=== PATIENT | female | born 1930 | race Caucasian/White ===

== ENCOUNTER 2016-12-17 03:40 | Emergency (ER) | payer MEDICARE, BC ==
[2016-12-17 04:27] VITALS: BP 210/103
--- NOTE | 2016-12-17 04:32 | EDM.PDOC ---
ED HPI GENERAL MEDICAL PROBLEM - General Chief Complaint: Chest Pain Stated Complaint: CHEST PAIN Time Seen by Provider: 12/17/16 04:05 Source of Information: Reports: Patient History Limitations: Reports: No Limitations - History of Present Illness INITIAL COMMENTS - FREE TEXT/NARRATIVE: History of present illness: [A 6-year-old female presenting by ambulance. She apparently woke up and noticed that her light on her stand that has to do with her pacemaker was on it alarmed her. She got up to go to the bathroom and she admits to being somewhat excitable but ended up pushing her life alert alarm in came in by ambulance her son is here with her. She did have some chest pain that has resolved by the time she arrived here and she is complaining of some numbness of the left side of her face but I'm not sure if this is acute or chronic for her. She has no headaches or visual disturbances no complaints of weakness she lives at [facility] in [place] been getting along well there with a walker and still cooking and cleaning and caring for her daily needs.] Review of systems: As per history of present illness and below otherwise all systems reviewed and negative. Past medical history: As per history of present illness and as reviewed below otherwise noncontributory. Surgical history: As per history of present illness and as reviewed below otherwise noncontributory. Social history: No reported history of drug or alcohol abuse. Family history: As per history of present illness and as reviewed below otherwise noncontributory. Physical exam: Gen.: Very pleasant talkative friendly woman who appears to be in excellent health for her age. HEENT: Atraumatic, normocephalic, pupils reactive, negative for conjunctival pallor or scleral icterus, mucous membranes somewhat dry, throat clear, neck supple, nontender, trachea midline. Lungs: Clear to auscultation, breath sounds equal bilaterally, chest nontender. Heart: S1S2, regular, negative for clicks, rubs, or JVD. Abdomen: Soft, nondistended, nontender. Negative for masses or hepatosplenomegaly. Negative for costovertebral tenderness. Pelvis: Stable nontender. Genitourinary: Deferred. Rectal: Deferred. Extremities: Atraumatic, negative for cords or calf pain. Neurovascular unremarkable. Neuro: Awake, alert, oriented. Cranial nerves II through XII unremarkable. Cerebellum unremarkable. Motor and sensory unremarkable throughout. Exam nonfocal. She does have a little bit of a droop to the left corner of her mouth but she states that's been there since she went to the dentist to have some dental work done. So that's not new. Diagnostics: [EKG shows that she has a paced rhythm with no current ischemia or injury] Therapeutics: [] Impression: [Hypertension Anxiety state] Plan: [After just visiting with her I think that we determined that she just had another episode of excitement when she saw the red light by her bedside and it just precipitated of turn of events that she ended appear in the ER but she really is doing fine and feeling better and wouldn't let her return to her home. Her son will have some recheck on her later. Her blood pressure was up but she is due for her morning blood pressure meds in a couple of hours.] Definitive disposition and diagnosis as appropriate pending reevaluation and review of above. Left Middle Chest Pain Score (Numeric/FACES): 2 - Related Data Allergies Allergy/AdvReac Type Severity Reaction Status Date / Time allopurinol Allergy Cannot Verified 03/25/16 07:44 Remember amlodipine besylate Allergy Swelling Verified 03/25/16 07:44 [From Norvasc] cilostazol [From Pletal] Allergy Headache Verified 03/25/16 07:44 iodine Allergy Hives Verified 03/25/16 07:44 niacin Allergy Hives Verified 03/25/16 07:44 paroxetine HCl [From Paxil] Allergy Cannot Verified 03/25/16 07:44 Remember acetaminophen AdvReac Hallucinati Verified 03/25/16 07:44 [From Darvocet-N] ons alendronate sodium AdvReac Stomach Verified 03/25/16 07:44 [From Fosamax] Upset aspirin AdvReac Stomach Verified 03/25/16 07:44 Ache codeine AdvReac Stomach Verified 03/25/16 07:44 Upset cyclobenzaprine HCl AdvReac Syncope Verified 03/25/16 07:44 [From Flexeril] lorazepam [From Ativan] AdvReac Tremors Verified 03/25/16 07:44 propoxyphene napsylate AdvReac Hallucinati Verified 03/25/16 07:44 [From Darvocet-N] ons raloxifene HCl [From Evista] AdvReac Hallucinati Verified 03/25/16 07:44 ons Home Meds: Home Meds Cetirizine HCl [Zyrtec] 10 mg PO DAILY 12/19/13 [History] Furosemide [Lasix] 20 mg PO DAILY 12/19/13 [History] Levothyroxine [Synthroid] 50 mcg PO DAILY 12/19/13 [History] Losartan [Cozaar] 50 mg PO DAILY 12/19/13 [History] Lutein 10 mg PO DAILY 12/19/13 [History] Sotalol [Betapace, Sorine] 120 mg PO BID 12/19/13 [History] Warfarin [Coumadin] 7.5 mg PO MOFR 12/19/13 [History] Ca Carbonate/Vitamin D3/Vit K [Calcium + D Soft Chewable Tab] 1 tab PO TID 08/19 [History] cycloSPORINE [Restasis] 1 drop EYEBOTH BID 08/19/14 [History] Gluc HCl/Csa/Claire Hy/Hyalur Ac [Glucosamine Chondroitin] 1 tab PO BID 02/11/15 [ History] Hydrocortisone [Hydrocortisone 1% Crm] 1 applic TOP DAILY PRN 02/11/15 [History] Ipratropium [Atrovent 0.06% Nasal [place]] 2 sprays QUE TID PRN 02/11/15 [History] Multivitamin with Minerals [Multiple Vitamin] 1 tab PO DAILY 02/11/15 [History] Cholestyramine/Aspartame [Questran Light Powder] 4 gm PO DAILY PRN 02/13/16 [ History] Garlic 1 each PO DAILY 02/13/16 [History] Warfarin [Coumadin] 5 mg PO SUTUWETHSA 02/13/16 [History] Digoxin [Lanoxin] 125 mcg PO DAILY 12/17/16 [History] Diltiazem [Cardizem] 30 mg PO ASDIRECTED PRN 12/17/16 [History] Prednisone [IJD: Prednisone] 2 mg PO DAILY 12/17/16 [History] Past Medical History HEENT History: Reports: Allergic Rhinitis, Cataract, Hard of Hearing, Impaired Vision, Sinusitis Cardiovascular History: Reports: Afib, Arrhythmia, Blood Clots/VTE/DVT, High Cholesterol, Hypertension, Pacemaker Gastrointestinal History: Reports: Gastritis, GERD, Helicobacter Pylori 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: , 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 Musculoskeletal History: Reports: Arthritis, Back Pain, Chronic, Fracture, Osteoporosis Neurological History: Reports: Headaches, Chronic, Other (See Below) Other Neuro History: acoustic neuroma-brain, benign Psychiatric History: Reports: Anxiety, Mood Swings Endocrine/Metabolic History: Reports: Hypothyroidism, Osteoporosis Hematologic History: Reports: Anticoagulation Therapy Oncologic (Cancer) History: Reports: Other (See Below) Other Oncologic History: skin CA Dermatologic History: Reports: Eczema - Infectious Disease History Infectious Disease History: Reports: Chicken Pox, Measles, Mumps - Past Surgical History HEENT Surgical History: Reports: Adenoidectomy, Cataract Surgery, Tonsillectomy Endocrine Surgical History: Reports: None Neurological Surgical History: Reports: Thoracic Spine, Other (See Below) Musculoskeletal Surgical History: Reports: Other (See Below) Social & Family History - Family History Family Medical History: Noncontributory Cardiac: Reports: Hypertension Other Cardiac Family History: Sister had stroke. Musculoskeletal: Reports: Arthritis, Osteoporosis Neurological: Reports: CVA Psychiatric: Reports: Anxiety Oncologic: Reports: Leukemia - Tobacco Use Smoking Status *Q: Never Smoker Second Hand Smoke Exposure: No - Caffeine Use Caffeine Use: Reports: Coffee - Alcohol Use Days Per Week of Alcohol Use: 0 - Recreational Drug Use Recreational Drug Use: No ED ROS GENERAL - Review of Systems Review Of Systems: ROS reveals no pertinent complaints other than HPI. ED EXAM, GENERAL - Physical Exam Exam: See Below Course - Vital Signs Last Recorded V/S: Last Vital Signs Temp 36.7 C 12/17/16 03:55 Pulse 62 12/17/16 03:55 Resp 12 12/17/16 03:55 BP 218/113 H 12/17/16 03:55 Pulse Ox 97 12/17/16 03:55 Departure - Departure Time of Disposition: 04:31 Disposition: Home, Self-Care 01 Condition: Good Clinical Impression: Anxiety state Hypertension Qualifiers: Hypertension type: essential hypertension Qualified Code(s): I10 - Essential ( primary) hypertension Forms: ED Department Discharge Additional Instructions: It was a pleasure to meet you and I wish you well and now the rest your summer goes well. No forget to take her blood pressure medications and follow up with your doctor as per his recommendations and have your son check out the machine that monitors your pacemaker to make sure that it's working properly and charging.
== END 2016-12-17 04:51 | disposition home or self-care (01) ==
LOC: JP.ED 03:40
DX: I10 Essential (primary) hypertension (principal); F41.9 Anxiety disorder, unspecified; I48.91 Unspecified atrial fibrillation; K21.9 Gastro-esophageal reflux disease without esophagitis; M81.0 Age-related osteoporosis without current pathological fracture; E03.9 Hypothyroidism, unspecified; Z98.890 Other specified postprocedural states; Z90.49 Acquired absence of other specified parts of digestive tract; Z86.718 Personal history of other venous thrombosis and embolism; Z79.01 Long term (current) use of anticoagulants; Z79.899 Other long term (current) drug therapy; Z85.828 Personal history of other malignant neoplasm of skin; Z88.5 Allergy status to narcotic agent; Z88.6 Allergy status to analgesic agent; Z88.8 Allergy status to other drugs, medicaments and biological substances
CPT/HCPCS: 93005; 93010; 99284; 99285

== ENCOUNTER 2016-12-20 14:02 | Emergency (ER) | payer MEDICARE, BC ==
[2016-12-20] MEDS ORDERED: Aspirin 81 MG Tab.Chew PO ONE (14:39)
--- NOTE | 2016-12-20 14:43 | EDM.PDOC ---
ED HPI GENERAL MEDICAL PROBLEM - General Chief Complaint: Chest Pain Stated Complaint: CHEST, ARM, JAW PAIN,SOB Time Seen by Provider: 12/20/16 14:13 Source of Information: Reports: Patient, Family, Old Records, RN Notes Reviewed History Limitations: Reports: No Limitations - History of Present Illness INITIAL COMMENTS - FREE TEXT/NARRATIVE: 86-year-old female presents emergency department day complaint of chest discomfort with left arm radiation as well as radiation into the jaw also shortness of breath no nausea or diaphoresis, she has no history of coronary artery disease does have a history of a pacemaker and anxiety Chest Pain Score (Numeric/FACES): 2 - Related Data Allergies Allergy/AdvReac Type Severity Reaction Status Date / Time allopurinol Allergy Cannot Verified 03/25/16 07:44 Remember amlodipine besylate Allergy Swelling Verified 03/25/16 07:44 [From Norvasc] cilostazol [From Pletal] Allergy Headache Verified 03/25/16 07:44 iodine Allergy Hives Verified 12/20/16 14:17 niacin Allergy Hives Verified 12/20/16 14:17 paroxetine HCl [From Paxil] Allergy Cannot Verified 12/20/16 14:17 Remember acetaminophen AdvReac Hallucinati Verified 12/20/16 14:17 [From Darvocet-N] ons alendronate sodium AdvReac Stomach Verified 12/20/16 14:17 [From Fosamax] Upset aspirin AdvReac Stomach Verified 12/20/16 14:17 Ache codeine AdvReac Stomach Verified 12/20/16 14:17 Upset cyclobenzaprine HCl AdvReac Syncope Verified 12/20/16 14:17 [From Flexeril] lorazepam [From Ativan] AdvReac Tremors Verified 12/20/16 14:17 propoxyphene napsylate AdvReac Hallucinati Verified 12/20/16 14:17 [From Darvocet-N] ons raloxifene HCl [From Evista] AdvReac Hallucinati Verified 03/25/16 07:44 ons Home Meds: Home Meds Cetirizine HCl [Zyrtec] 10 mg PO DAILY 12/19/13 [History] Furosemide [Lasix] 20 mg PO DAILY 12/19/13 [History] Levothyroxine [Synthroid] 50 mcg PO DAILY 12/19/13 [History] Losartan [Cozaar] 50 mg PO DAILY 12/19/13 [History] Lutein 10 mg PO DAILY 12/19/13 [History] Sotalol [Betapace, Sorine] 120 mg PO BID 12/19/13 [History] Warfarin [Coumadin] 7.5 mg PO MOFR 12/19/13 [History] Ca Carbonate/Vitamin D3/Vit K [Calcium + D Soft Chewable Tab] 1 tab PO TID 08/19 [History] cycloSPORINE [Restasis] 1 drop EYEBOTH BID 08/19/14 [History] Gluc HCl/Csa/Claire Hy/Hyalur Ac [Glucosamine Chondroitin] 1 tab PO BID 02/11/15 [ History] Ipratropium [Atrovent 0.06% Nasal [place]] 2 sprays QUE TID PRN 02/11/15 [History] Multivitamin with Minerals [Multiple Vitamin] 1 tab PO DAILY 02/11/15 [History] Warfarin [Coumadin] 5 mg PO SUTUWETHSA 02/13/16 [History] Digoxin [Lanoxin] 125 mcg PO DAILY 12/17/16 [History] Diltiazem [Cardizem] 30 mg PO ASDIRECTED PRN 12/17/16 [History] Prednisone [IJD: Prednisone] 2 mg PO DAILY 12/17/16 [History] Past Medical History HEENT History: Reports: Allergic Rhinitis, Cataract, Hard of Hearing, Impaired Vision, Sinusitis Cardiovascular History: Reports: Afib, Arrhythmia, Blood Clots/VTE/DVT, High Cholesterol, Hypertension, Pacemaker Gastrointestinal History: Reports: Gastritis, GERD, Helicobacter Pylori 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: , 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 Musculoskeletal History: Reports: Arthritis, Back Pain, Chronic, Fracture, Osteoporosis Neurological History: Reports: Headaches, Chronic, Other (See Below) Other Neuro History: acoustic neuroma-brain, benign Psychiatric History: Reports: Anxiety, Mood Swings Endocrine/Metabolic History: Reports: Hypothyroidism, Osteoporosis Hematologic History: Reports: Anticoagulation Therapy Oncologic (Cancer) History: Reports: Other (See Below) Other Oncologic History: skin CA Dermatologic History: Reports: Eczema - Infectious Disease History Infectious Disease History: Reports: Chicken Pox, Measles, Mumps - Past Surgical History HEENT Surgical History: Reports: Adenoidectomy, Cataract Surgery, Tonsillectomy Cardiovascular Surgical History: Reports: Pacer Endocrine Surgical History: Reports: None Neurological Surgical History: Reports: Thoracic Spine, Other (See Below) Other Neurological Surgeries/Procedures: brain surgery for acoustic neuroma- brain Musculoskeletal Surgical History: Reports: Other (See Below) Other Musculoskeletal Surgeries/Procedures:: femur repair Social & Family History - Family History Family Medical History: Noncontributory Cardiac: Reports: Hypertension Other Cardiac Family History: Sister had stroke. Musculoskeletal: Reports: Arthritis, Osteoporosis Neurological: Reports: CVA Psychiatric: Reports: Anxiety Oncologic: Reports: Leukemia - Tobacco Use Smoking Status *Q: Never Smoker Second Hand Smoke Exposure: No - Caffeine Use Caffeine Use: Reports: Coffee - Alcohol Use Days Per Week of Alcohol Use: 0 - Recreational Drug Use Recreational Drug Use: No ED ROS GENERAL - Review of Systems Review Of Systems: See Below Constitutional: Denies: Diaphoresis HEENT: Reports: No Symptoms Respiratory: Reports: Shortness of Breath Cardiovascular: Reports: Chest Pain. Denies: Palpitations GI/Abdominal: Denies: Nausea, Vomiting : Reports: No Symptoms Musculoskeletal: Reports: No Symptoms Skin: Reports: No Symptoms ED EXAM, GENERAL - Physical Exam Exam: See Below Free Text/Narrative:: General: Elderly female, not in any distress, alert and oriented x3 HEENT: head is atraumatic normocephalic, eyes pupils equal round reactive to light, sclera clear no conjunctivitis appreciated. Ears hearing aids in place bilaterally. Nose no septal deviation, nares are clear, no blood present. Mouth mucosa is moist and pink no erythema or exudate noted in soft palate, tongue is midline uvula is midline, dentition is intact. Neck: Supple no thyromegaly no tracheal deviation. Nodes: Cervical nodes subclavicular nodes nontender no palpable lymphadenopathy noted. Lungs: clear to auscultation bilaterally with symmetrical respirations, no adventitious noise appreciated. CV: Regular rate and rhythm S1 and S2 appreciated no murmurs rubs or gallops noted. Abdomen: Soft, nontender, no palpable masses or organomegaly appreciated, no distention no guarding bowel sounds are present,. Neuro: Cranial nerves II through XII grossly intact Skin: Warm and dry, intact Extremities: No lower extremity edema appreciated, Course - Vital Signs Last Recorded V/S: Last Vital Signs Temp 97.8 F 12/20/16 14:12 Pulse 65 12/20/16 18:49 Resp 16 12/20/16 17:48 BP 153/74 H 12/20/16 18:49 Pulse Ox 95 12/20/16 18:49 - Orders/Labs/Meds Orders: Active Orders 24 hr Category Date Time Status Cardiac Monitoring [RC] .As Directed Care 12/20/16 14:39 Active EKG Documentation Completion [RC] ASDIRECTED Care 12/20/16 14:39 Active Chest 2V [CR] Stat Exams 12/20/16 14:39 Taken EKG 12 Lead [EK] Stat Ther 12/20/16 14:39 Ordered Labs: Laboratory Tests 12/20/16 12/20/16 12/20/16 Range/Units 14:39 14:39 14:39 WBC 6.4 (4.5-11.0) K/uL RBC 4.84 (3.30-5.50) M/uL Hgb 14.5 (12.0-15.0) g/dL Hct 41.0 (36.0-48.0) % MCV 85 (80-98) fL MCH 30 (27-31) pg MCHC 35 (32-36) % Plt Count 183 (150-400) K/uL Neut % (Auto) 59 (36-66) % Lymph % (Auto) 28 (24-44) % [place] % (Auto) 11 H (2-6) % Eos % (Auto) 2 (2-4) % Baso % (Auto) 1 (0-1) % PT 20.5 H (9.5-12.0) sec INR 1.87 H (0.80-1.20) D-Dimer, Quantitative (0.0-400.0) ng/mL Sodium 131 L (140-148) mmol/L Potassium 4.0 (3.6-5.2) mmol/L Chloride 95 L (100-108) mmol/L Carbon Dioxide 28 (21-32) mmol/L Anion Gap 12.0 (5.0-14.0) mmol/L BUN 20 H (7-18) mg/dL Creatinine 0.9 (0.6-1.0) mg/dL Est Cr Clr Drug Dosing 31.63 mL/min Estimated GFR (MDRD) 59 L (>60) Glucose 95 (74-106) mg/dL Calcium 8.7 (8.5-10.1) mg/dL Total Bilirubin 0.8 (0.2-1.0) mg/dL AST 28 (15-37) U/L ALT 24 (12-78) U/L Alkaline Phosphatase 43 L (46-116) U/L CK-MB (CK-2) 3.3 (0-3.6) mg/mL Troponin I < 0.017 (0.000-0.056) ng/mL Total Protein 7.4 (6.4-8.2) g/dL Albumin 3.5 (3.4-5.0) g/dL Globulin 3.9 H (2.3-3.5) g/dL Albumin/Globulin Ratio 0.9 L (1.2-2.2) 12/20/16 12/20/16 Range/Units 16:09 17:30 WBC (4.5-11.0) K/uL RBC (3.30-5.50) M/uL Hgb (12.0-15.0) g/dL Hct (36.0-48.0) % MCV (80-98) fL MCH (27-31) pg MCHC (32-36) % Plt Count (150-400) K/uL Neut % (Auto) (36-66) % Lymph % (Auto) (24-44) % [place] % (Auto) (2-6) % Eos % (Auto) (2-4) % Baso % (Auto) (0-1) % PT (9.5-12.0) sec INR (0.80-1.20) D-Dimer, Quantitative 358 (0.0-400.0) ng/mL Sodium (140-148) mmol/L Potassium (3.6-5.2) mmol/L Chloride (100-108) mmol/L Carbon Dioxide (21-32) mmol/L Anion Gap (5.0-14.0) mmol/L BUN (7-18) mg/dL Creatinine (0.6-1.0) mg/dL Est Cr Clr Drug Dosing mL/min Estimated GFR (MDRD) (>60) Glucose (74-106) mg/dL Calcium (8.5-10.1) mg/dL Total Bilirubin (0.2-1.0) mg/dL AST (15-37) U/L ALT (12-78) U/L Alkaline Phosphatase (46-116) U/L CK-MB (CK-2) 3.0 (0-3.6) mg/mL Troponin I < 0.017 (0.000-0.056) ng/mL Total Protein (6.4-8.2) g/dL Albumin (3.4-5.0) g/dL Globulin (2.3-3.5) g/dL Albumin/Globulin Ratio (1.2-2.2) Meds: Medications Discontinued Medications Generic Name Dose Route Start Last Admin Trade Name Cortes PRN Reason Stop Dose Admin Aspirin 324 mg 12/20/16 14:39 12/20/16 14:52 Aspirin PO 12/20/16 14:40 324 mg ONETIME ONE Administration Departure - Departure Time of Disposition: 19:10 Disposition: Home, Self-Care 01 Condition: Good Clinical Impression: Atypical chest pain Forms: ED Department Discharge Additional Instructions: Continue with your regular medications Please followup with your primary care provider in 3-5 days if not better, please call return to the emergency department with worsening of symptoms. - My Orders Last 24 Hours: My Active Orders 12/20/16 14:39 Cardiac Monitoring [RC] .As Directed EKG Documentation Completion [RC] ASDIRECTED Chest 2V [CR] Stat EKG 12 Lead [EK] Stat - Assessment/Plan Last 24 Hours: My Active Orders 12/20/16 14:39 Cardiac Monitoring [RC] .As Directed EKG Documentation Completion [RC] ASDIRECTED Chest 2V [CR] Stat EKG 12 Lead [EK] Stat Plan: Assessment Acuity = acute Site and laterality = atypical chest pain Etiology = unclear etiology Manifestations = none Location of injury = Home Lab values = CBC within normal limits, INR low at 1.87 subtherapeutic d-dimer - 358 sodium low at 131 consistent hyponatremia and the remainder CMP was unremarkable troponin negative 2 3 hours apart, heart score was 4, chest x-ray shows I did review films myself I cannot appreciate any acute process, the official read from radiology is pending, EKG demonstrates sinus rhythm no ST changes or elevations Plan I did review lab work EKG results with her she had no cardiac events for arrhythmias chest pain spontaneously resolved plan is to discharge home follow- up primary care 3-5 days for reevaluation Patient was in agreement with the plan all questions were answered, they were instructed to return to the emergency department or call for worsening symptoms. This note was dictated using [employer] voice recognition software please call with any questions.
[2016-12-20 18:50] VITALS: BP 153/74
--- NOTE | 2016-12-21 09:51 | CR ---
Two-view chest Comparison: 13 February 2016. Findings: There is hyperinflation consistent with COPD. There is a stable cardiac pacemaker with 2 i ntact leads. There are no infiltrates or effusions. The heart and vascular structures are stable. St able compression deformities of the thoracic spine with vertebral plasty changes at 2 levels. Impression: 1. COPD. 2. No acute findings.
== END 2016-12-20 19:21 | disposition home or self-care (01) ==
LOC: JP.ED 14:02
DX: R07.89 Other chest pain (principal); I10 Essential (primary) hypertension; M81.0 Age-related osteoporosis without current pathological fracture; Z95.0 Presence of cardiac pacemaker; I48.91 Unspecified atrial fibrillation; E78.00 Pure hypercholesterolemia, unspecified; K21.9 Gastro-esophageal reflux disease without esophagitis; E03.9 Hypothyroidism, unspecified; Z98.890 Other specified postprocedural states; Z98.49 Cataract extraction status, unspecified eye; Z88.1 Allergy status to other antibiotic agents; Z88.8 Allergy status to other drugs, medicaments and biological substances; Z88.5 Allergy status to narcotic agent; Z79.899 Other long term (current) drug therapy; Z79.01 Long term (current) use of anticoagulants
CPT/HCPCS: 36415; 71020; 80053; 82553; 84484; 85025; 85379; 85610; 93005; 99285; A9270; 93010; 99284

== ENCOUNTER 2017-01-02 01:29 | Inpatient (IN) | payer MEDICARE, BC ==
[2017-01-02] MEDS ORDERED: Lisinopril 10 MG Tab PO ONE (02:08)
[2017-01-02] MEDS ORDERED: Sodium Chloride 0.9% 10 ML Syringe FLUSH PRN (02:08)
[2017-01-02] MEDS ORDERED: Lactated Ringers 1,000 ML IV SCH (02:15)
--- NOTE | 2017-01-02 02:16 | EDM.PDOC ---
ED HPI GENERAL MEDICAL PROBLEM - General Chief Complaint: General Stated Complaint: MED[facility] Time Seen by Provider: 01/02/17 02:00 Source of Information: Reports: Patient, Family, RN Notes Reviewed History Limitations: Reports: Altered Mental Status - History of Present Illness INITIAL COMMENTS - FREE TEXT/NARRATIVE: 86-year-old female presents emergency department today via EMS services for increased confusion, family states she has progressively gotten worse over the last 10 days having difficulty with memory urinary frequency inappropriate behavior she has become more confused. Difficult to obtain review of systems. 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 - Related Data Allergies Allergy/AdvReac Type Severity Reaction Status Date / Time allopurinol Allergy Cannot Verified 01/02/17 01:51 Remember amlodipine besylate Allergy Swelling Verified 01/02/17 01:51 [From Norvasc] cilostazol [From Pletal] Allergy Headache Verified 01/02/17 01:51 iodine Allergy Hives Verified 01/02/17 01:51 niacin Allergy Hives Verified 01/02/17 01:51 paroxetine HCl [From Paxil] Allergy Other Verified 01/02/17 04:00 acetaminophen AdvReac Hallucinati Verified 01/02/17 01:51 [From Darvocet-N] ons alendronate sodium AdvReac Stomach Verified 01/02/17 01:51 [From Fosamax] Upset aspirin AdvReac Stomach Verified 01/02/17 01:51 Ache codeine AdvReac Stomach Verified 01/02/17 01:51 Upset cyclobenzaprine HCl AdvReac Syncope Verified 01/02/17 01:51 [From Flexeril] lorazepam [From Ativan] AdvReac Tremors Verified 01/02/17 01:51 propoxyphene napsylate AdvReac Hallucinati Verified 01/02/17 01:51 [From Darvocet-N] ons raloxifene HCl [From Evista] AdvReac Hallucinati Verified 01/02/17 01:51 ons Home Meds: Home Meds Furosemide [Lasix] 20 mg PO DAILY 12/19/13 [History] Levothyroxine [Synthroid] 50 mcg PO DAILY 12/19/13 [History] Losartan [Cozaar] 50 mg PO DAILY 12/19/13 [History] Lutein 10 mg PO DAILY 12/19/13 [History] Sotalol [Betapace, Sorine] 120 mg PO BID 12/19/13 [History] cycloSPORINE [Restasis] 1 drop EYEBOTH BID 08/19/14 [History] Gluc HCl/Csa/Claire Hy/Hyalur Ac [Glucosamine Chondroitin] 1 tab PO BID 02/11/15 [ History] Ipratropium [Atrovent 0.06% Nasal [place]] 2 sprays QUE TID PRN 02/11/15 [History] Multivitamin with Minerals [Multiple Vitamin] 1 tab PO DAILY 02/11/15 [History] Warfarin [Coumadin] 5 mg PO DAILY 02/13/16 [History] Digoxin [Lanoxin] 125 mcg PO DAILY 12/17/16 [History] Diltiazem [Cardizem] 30 mg PO ASDIRECTED PRN 12/17/16 [History] Prednisone [IJD: Prednisone] 2 mg PO DAILY 12/17/16 [History] Calcium Carbonate 1 tab PO DAILY 01/02/17 [History] Levocetirizine Dihydrochloride [Xyzal] 5 mg PO BEDTIME 01/02/17 [History] Past Medical History HEENT History: Reports: Allergic Rhinitis, Cataract, Hard of Hearing, Impaired Vision, Sinusitis Cardiovascular History: Reports: Afib, Arrhythmia, Blood Clots/VTE/DVT, High Cholesterol, Hypertension, Pacemaker Gastrointestinal History: Reports: Gastritis, GERD, Helicobacter Pylori 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: , Spontaneous Musculoskeletal History: Reports: Arthritis, Back Pain, Chronic, Fracture, Osteoporosis Neurological History: Reports: Headaches, Chronic, Other (See Below) Other Neuro History: acoustic neuroma-brain, benign Psychiatric History: Reports: Anxiety, Mood Swings Endocrine/Metabolic History: Reports: Hypothyroidism, Osteoporosis Hematologic History: Reports: Anticoagulation Therapy Oncologic (Cancer) History: Reports: Other (See Below) Other Oncologic History: skin CA Dermatologic History: Reports: Eczema - Infectious Disease History Infectious Disease History: Reports: Chicken Pox, Measles, Mumps - Past Surgical History HEENT Surgical History: Reports: Adenoidectomy, Cataract Surgery, Tonsillectomy Cardiovascular Surgical History: Reports: Pacer Endocrine Surgical History: Reports: None Neurological Surgical History: Reports: Thoracic Spine, Other (See Below) Other Neurological Surgeries/Procedures: brain surgery for acoustic neuroma- brain Musculoskeletal Surgical History: Reports: Other (See Below) Other Musculoskeletal Surgeries/Procedures:: femur repair Social & Family History - Family History Family Medical History: Noncontributory Cardiac: Reports: Hypertension Other Cardiac Family History: Sister had stroke. Musculoskeletal: Reports: Arthritis, Osteoporosis Neurological: Reports: CVA Psychiatric: Reports: Anxiety Oncologic: Reports: Leukemia - Tobacco Use Smoking Status *Q: Never Smoker Second Hand Smoke Exposure: No - Caffeine Use Caffeine Use: Reports: Coffee - Alcohol Use Days Per Week of Alcohol Use: 0 - Recreational Drug Use Recreational Drug Use: No ED ROS GENERAL - Review of Systems Review Of Systems: Unable To Obtain ED EXAM, GENERAL - Physical Exam Exam: See Below Exam Limited By: Altered Mental Status General Appearance: Alert, No Apparent Distress Eye Exam: Bilateral Eye: Normal Inspection, PERRL Ears: Normal External Exam, Other (Hearing and in place bilaterally) Nose: Normal Inspection, Normal Mucosa, No Blood Throat/Mouth: Normal Inspection, No Airway Compromise, Other (Dry mouth dentures in place) Head: Atraumatic, Normocephalic Neck: Normal Inspection, Supple, Non-Tender, Full Range of Motion Respiratory/Chest: No Respiratory Distress, Lungs Clear, Normal Breath Sounds, No Accessory Muscle Use Cardiovascular: No Murmur, Irregularly Irregular GI/Abdominal: Soft, Non-Tender Extremities: Normal Inspection, Non-Tender, No Pedal Edema Neurological: Alert, Confused, Disoriented, Slow to Respond, Memory Loss Recent Events Skin Exam: Warm Course - Vital Signs Last Recorded V/S: Last Vital Signs Temp 97.9 F 01/02/17 01:44 Pulse 60 01/02/17 01:44 Resp 12 01/02/17 01:44 BP 195/95 H 01/02/17 02:56 Pulse Ox 97 01/02/17 01:44 - Orders/Labs/Meds Orders: Active Orders 24 hr Category Date Time Status Peripheral IV Care [RC] . DIRECTED Care 01/02/17 02:09 Active Head wo Cont [CT] Urgent Exams 01/02/17 02:08 Taken Lactated Ringers [Ringers, Lactated] 1,000 ml Med 01/02/17 02:15 Active IV ASDIRECTED Sodium Chloride 0.9% [Saline Flush] Med 01/02/17 02:08 Active 10 ml FLUSH ASDIRECTED PRN Peripheral IV Insertion Adult [OM.PC] Urgent Oth 01/02/17 02:08 Ordered Medication Orders Lactated Ringer's (Ringers, Lactated) 1,000 mls @ 500 mls/hr IV ASDIRECTED TED Last Admin: 01/02/17 02:47 Dose: 500 mls/hr Sodium Chloride (Saline Flush) 10 ml FLUSH ASDIRECTED PRN PRN Reason: Keep Vein Open Last Admin: 01/02/17 02:47 Dose: 10 ml Labs: Laboratory Tests 01/02/17 01/02/17 01/02/17 Range/Units 01:55 02:28 02:28 WBC 9.7 (4.5-11.0) K/uL RBC 5.16 (3.30-5.50) M/uL Hgb 15.9 H (12.0-15.0) g/dL Hct 42.5 (36.0-48.0) % MCV 82 (80-98) fL MCH 31 (27-31) pg MCHC 37 H (32-36) % Plt Count 230 (150-400) K/uL Neut % (Auto) 70 H (36-66) % Lymph % (Auto) 19 L (24-44) % [place] % (Auto) 9 H (2-6) % Eos % (Auto) 1 L (2-4) % Baso % (Auto) 1 (0-1) % PT (9.5-12.0) sec INR (0.80-1.20) APTT (27.0-36.0) sec Sodium (140-148) mmol/L Potassium (3.6-5.2) mmol/L Chloride (100-108) mmol/L Carbon Dioxide (21-32) mmol/L Anion Gap (5.0-14.0) mmol/L BUN (7-18) mg/dL Creatinine (0.6-1.0) mg/dL Est Cr Clr Drug Dosing mL/min Estimated GFR (MDRD) (>60) Glucose (74-106) mg/dL Lactic Acid (0.4-2.0) mmol/L Calcium (8.5-10.1) mg/dL Total Bilirubin (0.2-1.0) mg/dL AST (15-37) U/L ALT (12-78) U/L Alkaline Phosphatase (46-116) U/L Ammonia (11-32) mmol/L Troponin I (0.000-0.056) ng/mL Total Protein (6.4-8.2) g/dL Albumin (3.4-5.0) g/dL Globulin (2.3-3.5) g/dL Albumin/Globulin Ratio (1.2-2.2) TSH, Ultra Sensitive (0.358-3.740) uIU/mL Urine Color Yellow Urine Appearance Clear Urine pH 8.0 (4.5-8.0) Ur Specific [place] 1.010 (1.008-1.030) Urine Protein 500 H (NEGATIVE) mg/dL Urine Glucose (UA) Normal (NEGATIVE) mg/dL Urine Ketones Negative (NEGATIVE) mg/dL Urine Occult Blood Negative (NEGATIVE) Urine Nitrite Negative (NEGATIVE) Urine Bilirubin Negative (NEGATIVE) Urine Urobilinogen Normal (NORMAL) mg/dL Ur Leukocyte Esterase Negative (NEGATIVE) Urine RBC Not seen (0-5) Urine WBC 0-5 (0-5) Ur Epithelial Cells Not seen Amorphous Sediment Few Urine Bacteria Few Urine Mucus Not seen Digoxin 0.83 L (0.90-2.00) ng/mL Urine Opiates Screen (NEGATIVE) Ur Oxycodone Screen (NEGATIVE) Urine Methadone Screen (NEGATIVE) Ur Propoxyphene Screen (NEGATIVE) Ur Barbiturates Screen (NEGATIVE) Ur Tricyclics Screen (NEGATIVE) Ur Phencyclidine Scrn (NEGATIVE) Ur Amphetamine Screen (NEGATIVE) U Methamphetamines Scrn (NEGATIVE) Urine MDMA Screen (NEGATIVE) U Benzodiazepines Scrn (NEGATIVE) U Cocaine Metab Screen (NEGATIVE) U Marijuana (THC) Screen (NEGATIVE) 01/02/17 01/02/17 01/02/17 Range/Units 02:28 02:28 02:28 WBC (4.5-11.0) K/uL RBC (3.30-5.50) M/uL Hgb (12.0-15.0) g/dL Hct (36.0-48.0) % MCV (80-98) fL MCH (27-31) pg MCHC (32-36) % Plt Count (150-400) K/uL Neut % (Auto) (36-66) % Lymph % (Auto) (24-44) % [place] % (Auto) (2-6) % Eos % (Auto) (2-4) % Baso % (Auto) (0-1) % PT 16.9 H (9.5-12.0) sec INR 1.55 H (0.80-1.20) APTT 29.1 (27.0-36.0) sec Sodium 123 L (140-148) mmol/L Potassium 4.1 (3.6-5.2) mmol/L Chloride 87 L (100-108) mmol/L Carbon Dioxide 27 (21-32) mmol/L Anion Gap 13.1 (5.0-14.0) mmol/L BUN 11 (7-18) mg/dL Creatinine 0.9 (0.6-1.0) mg/dL Est Cr Clr Drug Dosing 31.63 mL/min Estimated GFR (MDRD) 59 L (>60) Glucose 135 H (74-106) mg/dL Lactic Acid (0.4-2.0) mmol/L Calcium 9.0 (8.5-10.1) mg/dL Total Bilirubin 0.5 (0.2-1.0) mg/dL AST 30 (15-37) U/L ALT 30 (12-78) U/L Alkaline Phosphatase 52 (46-116) U/L Ammonia 8 L (11-32) mmol/L Troponin I < 0.017 (0.000-0.056) ng/mL Total Protein 8.2 (6.4-8.2) g/dL Albumin 3.7 (3.4-5.0) g/dL Globulin 4.5 H (2.3-3.5) g/dL Albumin/Globulin Ratio 0.8 L (1.2-2.2) TSH, Ultra Sensitive (0.358-3.740) uIU/mL Urine Color Urine Appearance Urine pH (4.5-8.0) Ur Specific [place] (1.008-1.030) Urine Protein (NEGATIVE) mg/dL Urine Glucose (UA) (NEGATIVE) mg/dL Urine Ketones (NEGATIVE) mg/dL Urine Occult Blood (NEGATIVE) Urine Nitrite (NEGATIVE) Urine Bilirubin (NEGATIVE) Urine Urobilinogen (NORMAL) mg/dL Ur Leukocyte Esterase (NEGATIVE) Urine RBC (0-5) Urine WBC (0-5) Ur Epithelial Cells Amorphous Sediment Urine Bacteria Urine Mucus Digoxin (0.90-2.00) ng/mL Urine Opiates Screen (NEGATIVE) Ur Oxycodone Screen (NEGATIVE) Urine Methadone Screen (NEGATIVE) Ur Propoxyphene Screen (NEGATIVE) Ur Barbiturates Screen (NEGATIVE) Ur Tricyclics Screen (NEGATIVE) Ur Phencyclidine Scrn (NEGATIVE) Ur Amphetamine Screen (NEGATIVE) U Methamphetamines Scrn (NEGATIVE) Urine MDMA Screen (NEGATIVE) U Benzodiazepines Scrn (NEGATIVE) U Cocaine Metab Screen (NEGATIVE) U Marijuana (THC) Screen (NEGATIVE) 01/02/17 01/02/17 01/02/17 Range/Units 02:28 02:28 02:28 WBC (4.5-11.0) K/uL RBC (3.30-5.50) M/uL Hgb (12.0-15.0) g/dL Hct (36.0-48.0) % MCV (80-98) fL MCH (27-31) pg MCHC (32-36) % Plt Count (150-400) K/uL Neut % (Auto) (36-66) % Lymph % (Auto) (24-44) % [place] % (Auto) (2-6) % Eos % (Auto) (2-4) % Baso % (Auto) (0-1) % PT (9.5-12.0) sec INR (0.80-1.20) APTT (27.0-36.0) sec Sodium (140-148) mmol/L Potassium (3.6-5.2) mmol/L Chloride (100-108) mmol/L Carbon Dioxide (21-32) mmol/L Anion Gap (5.0-14.0) mmol/L BUN (7-18) mg/dL Creatinine (0.6-1.0) mg/dL Est Cr Clr Drug Dosing mL/min Estimated GFR (MDRD) (>60) Glucose (74-106) mg/dL Lactic Acid 3.9 H (0.4-2.0) mmol/L Calcium (8.5-10.1) mg/dL Total Bilirubin (0.2-1.0) mg/dL AST (15-37) U/L ALT (12-78) U/L Alkaline Phosphatase (46-116) U/L Ammonia (11-32) mmol/L Troponin I (0.000-0.056) ng/mL Total Protein (6.4-8.2) g/dL Albumin (3.4-5.0) g/dL Globulin (2.3-3.5) g/dL Albumin/Globulin Ratio (1.2-2.2) TSH, Ultra Sensitive 8.507 H (0.358-3.740) uIU/mL Urine Color Urine Appearance Urine pH (4.5-8.0) Ur Specific [place] (1.008-1.030) Urine Protein (NEGATIVE) mg/dL Urine Glucose (UA) (NEGATIVE) mg/dL Urine Ketones (NEGATIVE) mg/dL Urine Occult Blood (NEGATIVE) Urine Nitrite (NEGATIVE) Urine Bilirubin (NEGATIVE) Urine Urobilinogen (NORMAL) mg/dL Ur Leukocyte Esterase (NEGATIVE) Urine RBC (0-5) Urine WBC (0-5) Ur Epithelial Cells Amorphous Sediment Urine Bacteria Urine Mucus Digoxin (0.90-2.00) ng/mL Urine Opiates Screen Negative (NEGATIVE) Ur Oxycodone Screen Negative (NEGATIVE) Urine Methadone Screen Negative (NEGATIVE) Ur Propoxyphene Screen Negative (NEGATIVE) Ur Barbiturates Screen Negative (NEGATIVE) Ur Tricyclics Screen Negative (NEGATIVE) Ur Phencyclidine Scrn Negative (NEGATIVE) Ur Amphetamine Screen Negative (NEGATIVE) U Methamphetamines Scrn Negative (NEGATIVE) Urine MDMA Screen Negative (NEGATIVE) U Benzodiazepines Scrn Negative (NEGATIVE) U Cocaine Metab Screen Negative (NEGATIVE) U Marijuana (THC) Screen Negative (NEGATIVE) Meds: Medications Generic Name Dose Route Start Last Admin Trade Name Freq PRN Reason Stop Dose Admin Lactated Ringer's 1,000 mls @ 500 mls/hr 01/02/17 02:15 01/02/17 02:47 Ringers, Lactated IV 500 mls/hr ASDIRECTED TED Administration Sodium Chloride 10 ml 01/02/17 02:08 01/02/17 02:47 Saline Flush FLUSH 10 ml ASDIRECTED PRN Administration Keep Vein Open Discontinued Medications Generic Name Dose Route Start Last Admin Trade Name Freq PRN Reason Stop Dose Admin Lisinopril 20 mg 01/02/17 02:08 01/02/17 02:20 Prinivil PO 01/02/17 02:09 20 mg ONETIME ONE Administration Departure - Departure Time of Disposition: 04:04 Disposition: Admitted As Inpatient 65 Condition: Fair Clinical Impression: Hyponatremia - Discharge Information Forms: ED Department Discharge - My Orders Last 24 Hours: My Active Orders 01/02/17 02:08 Head wo Cont [CT] Urgent Sodium Chloride 0.9% [Saline Flush] 10 ml FLUSH ASDIRECTED PRN Peripheral IV Insertion Adult [OM.PC] Urgent 01/02/17 02:09 Peripheral IV Care [RC] . DIRECTED 01/02/17 02:15 Lactated Ringers [Ringers, Lactated] 1,000 ml IV ASDIRECTED - Assessment/Plan Last 24 Hours: My Active Orders 01/02/17 02:08 Head wo Cont [CT] Urgent Sodium Chloride 0.9% [Saline Flush] 10 ml FLUSH ASDIRECTED PRN Peripheral IV Insertion Adult [OM.PC] Urgent 01/02/17 02:09 Peripheral IV Care [RC] . 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 which was recently started 10 days ago does have a history of hyponatremia on Paxil Manifestations = confusion Location of injury = Home Lab values = CBC unremarkable, INR subtherapeutic at 1.55 sodium low at 123 consistent hyponatremia lactic acid elevated at 3.9 consistent lactic acidosis TSH elevated at 8.5 consistent hypothyroidism, urinalysis demonstrates 500 of protein team consistent proteinuria and digoxin 0.83 which is subtherapeutic Plan I did review lab work with her daughter recommended hospital administration for slowly rehydrating her stopping the citalopram plan for rechecking the sodium in the morning. I did call discussed case with Dr. العراقي he agreed to evaluate the patient in the hospital This note was dictated using [employer] voice recognition software please call with any questions. 182 but she not very big eater Aydelotte be slight masses at 182
[2017-01-02] MEDS ORDERED: Acetaminophen 325 MG Tab PO PRN (04:08)
[2017-01-02] MEDS ORDERED: Ondansetron 4 MG Tab.DIS PO PRN (04:08)
[2017-01-02] MEDS ORDERED: Diltiazem IR 30 MG Tab PO PRN (04:12)
[2017-01-02] MEDS: Sodium Chloride 0.9% 1,000 ML IV SCH ×3 (05:00→14:00)
[2017-01-02] MEDS: Losartan 50 MG Tab PO SCH (08:11)
[2017-01-02] MEDS: Levothyroxine 50 MCG Tab PO SCH (08:11)
[2017-01-02] MEDS: Furosemide 20 MG Tab PO SCH (08:12)
[2017-01-02] MEDS: Beta-Carotene (Vitamin A) w/Vitamin C & E plus Minerals Tab PO SCH (08:12)
[2017-01-02] MEDS: predniSONE 1 MG Tab PO SCH (08:12)
[2017-01-02] MEDS: Sotalol 80 MG Tab PO SCH ×2 (08:14→20:23)
[2017-01-02] MEDS: Ipratropium 0.06% Nasal Spray 15 ML Bottle NAS PRN (08:15)
[2017-01-02] MEDS: cycloSPORINE Ophth Drops U/D Box of 30 EYEBOTH SCH ×2 (08:16→20:25)
[2017-01-02] MEDS: Calcium Carbonate 500 MG Tab.Chew PO SCH (08:16)
[2017-01-02] MEDS ORDERED: cycloSPORINE Ophth Drops U/D Box of 30 EYEBOTH SCH (09:00)
[2017-01-02] MEDS ORDERED: Furosemide 40 MG Tab PO SCH (09:00)
--- NOTE | 2017-01-02 09:23 | PCM.HP ---
H&P History of Present Illness - General Date of Service: 01/02/17 Admit Problem/Dx: Admission Diagnosis/Problem Admission Diagnosis/Problem Confusion - History of Present Illness Initial Comments - Free Text/Narative: Silvana presented to the emergency room with confusion. She does not provide much in the way of history so history is gathered from her daughter and emergency room personnel. Her daughter reports that since she was started on citalopram about 10 days ago she has had increasing confusion. She has almost seemed manic and has had extra energy. She has been hallucinating and seeing things that are not there. She has not been sleeping well. Over the past couple of days she has become increasingly confused and somewhat lethargic. She has not had any fevers that have been identified. She has not complained of shortness of breath. She did have chest pain week ago but was evaluated in this workup was negative. She reports a normal appetite. 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 With her significant confusion she is not safe for outpatient management. - Related Data Allergies/Adverse Reactions: Allergies Allergy/AdvReac Type Severity Reaction Status Date / Time allopurinol Allergy Cannot Verified 01/02/17 01:51 Remember amlodipine besylate Allergy Swelling Verified 01/02/17 01:51 [From Norvasc] cilostazol [From Pletal] Allergy Headache Verified 01/02/17 01:51 iodine Allergy Hives Verified 01/02/17 01:51 niacin Allergy Hives Verified 01/02/17 01:51 paroxetine HCl [From Paxil] Allergy Other Verified 01/02/17 04:00 acetaminophen AdvReac Hallucinati Verified 01/02/17 01:51 [From Darvocet-N] ons alendronate sodium AdvReac Stomach Verified 01/02/17 01:51 [From Fosamax] Upset aspirin AdvReac Stomach Verified 01/02/17 01:51 Ache codeine AdvReac Stomach Verified 01/02/17 01:51 Upset cyclobenzaprine HCl AdvReac Syncope Verified 01/02/17 01:51 [From Flexeril] lorazepam [From Ativan] AdvReac Tremors Verified 01/02/17 01:51 propoxyphene napsylate AdvReac Hallucinati Verified 01/02/17 01:51 [From Darvocet-N] ons raloxifene HCl [From Evista] AdvReac Hallucinati Verified 01/02/17 01:51 ons Home Medications: Home Meds Furosemide [Lasix] 20 mg PO DAILY 12/19/13 [History] Levothyroxine [Synthroid] 50 mcg PO DAILY 12/19/13 [History] Losartan [Cozaar] 50 mg PO DAILY 12/19/13 [History] Lutein 10 mg PO DAILY 12/19/13 [History] Sotalol [Betapace, Sorine] 120 mg PO BID 12/19/13 [History] cycloSPORINE [Restasis] 1 drop EYEBOTH BID 08/19/14 [History] Gluc HCl/Csa/Claire Hy/Hyalur Ac [Glucosamine Chondroitin] 1 tab PO BID 02/11/15 [ History] Ipratropium [Atrovent 0.06% Nasal [place]] 2 sprays QUE TID PRN 02/11/15 [History] Multivitamin with Minerals [Multiple Vitamin] 1 tab PO DAILY 02/11/15 [History] Warfarin [Coumadin] 5 mg PO DAILY 02/13/16 [History] Digoxin [Lanoxin] 125 mcg PO DAILY 12/17/16 [History] Diltiazem [Cardizem] 30 mg PO ASDIRECTED PRN 12/17/16 [History] Prednisone [IJD: Prednisone] 2 mg PO DAILY 12/17/16 [History] Calcium Carbonate 1 tab PO DAILY 01/02/17 [History] Levocetirizine Dihydrochloride [Xyzal] 5 mg PO BEDTIME 01/02/17 [History] Past Medical History HEENT History: Reports: Allergic Rhinitis, Cataract, Hard of Hearing, Impaired Vision, Sinusitis Cardiovascular History: Reports: Afib, Arrhythmia, Blood Clots/VTE/DVT, High Cholesterol, Hypertension, Pacemaker Gastrointestinal History: Reports: Gastritis, GERD, Helicobacter Pylori CEMENT SIDE LASTER History: Reports: , Spontaneous Musculoskeletal History: Reports: Arthritis, Back Pain, Chronic, Fracture, Osteoporosis Neurological History: Reports: Headaches, Chronic, Other (See Below) Other Neuro History: acoustic neuroma-brain, benign Psychiatric History: Reports: Anxiety, Mood Swings Endocrine/Metabolic History: Reports: Hypothyroidism, Osteoporosis Hematologic History: Reports: Anticoagulation Therapy Oncologic (Cancer) History: Reports: Other (See Below) Other Oncologic History: skin CA Dermatologic History: Reports: Eczema - Infectious Disease History Infectious Disease History: Reports: Chicken Pox, Measles, Mumps - Past Surgical History HEENT Surgical History: Reports: Adenoidectomy, Cataract Surgery, Tonsillectomy Cardiovascular Surgical History: Reports: Pacer Endocrine Surgical History: Reports: None Neurological Surgical History: Reports: Thoracic Spine, Other (See Below) Other Neurological Surgeries/Procedures: brain surgery for acoustic neuroma- brain Musculoskeletal Surgical History: Reports: Other (See Below) Other Musculoskeletal Surgeries/Procedures:: femur repair Social & Family History - Family History Family Medical History: Noncontributory Cardiac: Reports: Hypertension Other Cardiac Family History: Sister had stroke. Musculoskeletal: Reports: Arthritis, Osteoporosis Neurological: Reports: CVA Psychiatric: Reports: Anxiety Oncologic: Reports: Leukemia - Tobacco Use Smoking Status *Q: Never Smoker Second Hand Smoke Exposure: No - Caffeine Use Caffeine Use: Reports: Coffee - Alcohol Use Days Per Week of Alcohol Use: 0 - Recreational Drug Use Recreational Drug Use: No H&P Review of Systems - Review of Systems: Review Of Systems: See Below Free Text/Narrative: A complete 12 point review of systems was obtained. Pertinent positives and negatives are noted in the history of present illness. All other systems were reviewed and were negative except as noted. Exam - Exam Exam: See Below - Vital Signs Vital Signs: Last Vital Signs Temp 36.2 C 01/02/17 06:54 Pulse 60 01/02/17 08:14 Resp 18 01/02/17 06:54 BP 164/90 H 01/02/17 08:14 Pulse Ox 98 01/02/17 06:54 Weight: 64.728 kg - Exam Quality Assessment: No: Supplemental Oxygen General: Alert, Cooperative, Mild Distress. No: Oriented HEENT: Conjunctiva Clear, Mucosa Moist & Ideal. No: Scleral Icterus Neck: Supple, Trachea Midline, Lymphadenopathy Lungs: Clear to Auscultation, Normal Respiratory Effort Cardiovascular: Regular Rate, Regular Rhythm, Systolic Murmur GI/Abdominal Exam: Normal Bowel Sounds, Soft, Non-Tender, No Distention Back Exam: Normal Inspection, Full Range of Motion Extremities: Normal Inspection, No Pedal Edema, Other (No deformity or tenderness of the left hip). No: Increased Warmth Peripheral Pulses: 2+: Dorsalis Pedis (L), Dorsalis Pedis (R) Skin: Warm, Dry, Intact Neuro Extensive - Mental Status: Alert, Nl Response to Commands. No: Oriented x3, Normal Cognition Neuro Extensive - Motor, Sensory, Reflexes: CN II-XII Intact. No: Dysarthria, Abnormal Motor, Tremor Psychiatric: Alert, Anxious - Patient Data Lab Results Last 24 hrs: Laboratory Results - last 24 hr 01/02/17 01/02/17 01/02/17 Range/Units 05:11 05:11 05:48 WBC 14.7 H (4.5-11.0) K/uL RBC 4.93 (3.30-5.50) M/uL Hgb 14.8 (12.0-15.0) g/dL Hct 40.6 (36.0-48.0) % MCV 82 (80-98) fL MCH 30 (27-31) pg MCHC 37 H (32-36) % Plt Count 202 (150-400) K/uL Neut % (Auto) 81 H (36-66) % Lymph % (Auto) 12 L (24-44) % [place] % (Auto) 7 H (2-6) % Eos % (Auto) 1 L (2-4) % Baso % (Auto) 0 (0-1) % PT 17.2 H (9.5-12.0) sec INR 1.58 H (0.80-1.20) Sodium (140-148) mmol/L Potassium (3.6-5.2) mmol/L Chloride (100-108) mmol/L Carbon Dioxide (21-32) mmol/L Anion Gap (5.0-14.0) mmol/L BUN (7-18) mg/dL Creatinine (0.6-1.0) mg/dL Est Cr Clr Drug Dosing mL/min Estimated GFR (MDRD) (>60) Glucose (74-106) mg/dL Lactic Acid 2.0 (0.4-2.0) mmol/L Calcium (8.5-10.1) mg/dL 01/02/17 Range/Units 05:48 WBC (4.5-11.0) K/uL RBC (3.30-5.50) M/uL Hgb (12.0-15.0) g/dL Hct (36.0-48.0) % MCV (80-98) fL MCH (27-31) pg MCHC (32-36) % Plt Count (150-400) K/uL Neut % (Auto) (36-66) % Lymph % (Auto) (24-44) % [place] % (Auto) (2-6) % Eos % (Auto) (2-4) % Baso % (Auto) (0-1) % PT (9.5-12.0) sec INR (0.80-1.20) Sodium 124 L (140-148) mmol/L Potassium 3.9 (3.6-5.2) mmol/L Chloride 89 L (100-108) mmol/L Carbon Dioxide 27 (21-32) mmol/L Anion Gap 11.9 (5.0-14.0) mmol/L BUN 10 (7-18) mg/dL Creatinine 0.8 (0.6-1.0) mg/dL Est Cr Clr Drug Dosing 35.59 mL/min Estimated GFR (MDRD) > 60 (>60) Glucose 106 (74-106) mg/dL Lactic Acid (0.4-2.0) mmol/L Calcium 8.8 (8.5-10.1) mg/dL Result Diagrams: 01/02/17 05:11 01/02/17 05:48 Imaging Impressions Last 24 hrs: Head CT - images personally reviewed - there is no evidence for acute intracranial pathology such as mass, bleed or infection *Q Meaningful Use (ADM) - VTE *Q VTE Criteria *Q: - VTE Risk Assess *Q Each Risk Factor Represents 1 Point: Abnormal Pulmonary Function (COPD) Total Score 1 Point Risk Factors: 1 Each Risk Factor Represents 3 Points: Age 75 Years or Greater Total Score 3 Point Risk Factors: 3 Each Risk Factor Represents 5 Points: None Total Score 5 Point Risk Factors: 0 - Stroke *Q Stroke Criteria *Q: - AMI *Q AMI Criteria *Q: - Problem List (1) Hyponatremia SNOMED Code(s): 39633806 ICD Code: E87.1 - HYPO-OSMOLALITY AND HYPONATREMIA Status: Acute Current Visit: Yes (2) Delirium due to another medical condition, acute, hyperactive SNOMED Code(s): 9417562, 058173927, 099255514 ICD Code: F05 - DELIRIUM DUE TO KNOWN PHYSIOLOGICAL CONDITION Status: Acute Current Visit: Yes (3) Generalized anxiety disorder SNOMED Code(s): 69277513 ICD Code: F41.1 - GENERALIZED ANXIETY DISORDER Status: Chronic Current Visit: Yes (4) Chronic atrial fibrillation SNOMED Code(s): 572695829 ICD Code: I48.2 - CHRONIC ATRIAL FIBRILLATION Status: Chronic Current Visit: Yes Problem List Initiated/Reviewed/Updated: Yes Orders Last 24hrs: Active Orders 24 hr Category Date Time Status Beta-Carotene(A) w/C & E/Min [Prosight] Med 01/02/17 09:00 Active 1 tab PO DAILY Calcium Carbonate [Tums] Med 01/02/17 09:00 Active 1,250 mg PO DAILY Digoxin [Lanoxin] Med 01/02/17 13:00 Active 125 mcg PO DAILY@1300 Diltiazem [Cardizem] Med 01/02/17 04:12 Active 30 mg PO ASDIRECTED PRN Furosemide [Lasix] Med 01/02/17 09:00 Active 20 mg PO DAILY Gluc HCl/Csa/Claire Hy/Hyalur Ac [Glucosamine Chondroitin Med 01/02/17 09:00 Pending ] 1 tab PO BID Ipratropium [Atrovent 0.06% Nasal [place]] Med 01/02/17 04:12 Active 0 ml QUE TID PRN Levocetirizine Dihydrochloride [Xyzal] Med 01/02/17 21:00 Pending 5 mg PO BEDTIME Levothyroxine [Synthroid] Med 01/02/17 07:30 Active 50 mcg PO ACBREAKFAST Losartan [Cozaar] Med 01/02/17 09:00 Active 50 mg PO DAILY Lutein [Lutein] Med 01/02/17 09:00 Pending 10 mg PO DAILY Sotalol [Betapace] Med 01/02/17 09:00 Active 120 mg PO BID Warfarin [Coumadin] Med 01/02/17 13:00 Active 5 mg PO DAILY@1300 cycloSPORINE [Restasis] Med 01/02/17 09:00 Active 0 each EYEBOTH BID predniSONE Med 01/02/17 09:00 Active 2 mg PO DAILY Medication Orders Acetaminophen (Tylenol) 650 mg PO Q4H PRN PRN Reason: Pain (Mild 1-3)/fever Calcium Carbonate/Glycine (Tums) 1,250 mg PO DAILY [facility] Last Admin: 01/02/17 08:16 Dose: 1,250 mg Cyclosporine (Restasis) 0 each EYEBOTH BID [facility] Last Admin: 01/02/17 08:16 Dose: 1 drop Digoxin (Lanoxin) 125 mcg PO DAILY@1300 [facility] Diltiazem HCl (Cardizem) 30 mg PO ASDIRECTED PRN PRN Reason: Other Furosemide (Lasix) 20 mg PO DAILY [facility] Last Admin: 01/02/17 08:12 Dose: 20 mg Sodium Chloride (Normal Saline) 1,000 mls @ 125 mls/hr IV ASDIRECTED [facility] Last Admin: 01/02/17 05:00 Dose: 125 mls/hr Ipratropium [place] (Atrovent 0.06% Nasal [place]) 0 ml QUE TID PRN PRN Reason: Rhinitis Last Admin: 01/02/17 08:15 Dose: 2 spray Levothyroxine Sodium (Synthroid) 50 mcg PO ACBREAKFAST [facility] Last Admin: 01/02/17 08:11 Dose: 50 mcg Losartan Potassium (Cozaar) 50 mg PO DAILY [facility] Last Admin: 01/02/17 08:11 Dose: 50 mg Multivitamins/Minerals (Prosight) 1 tab PO DAILY [facility] Last Admin: 01/02/17 08:12 Dose: 1 tab Non-Formulary Medication (Gluc Hcl/Csa/Claire Hy/Hyalur Ac [Glucosamine Chondroitin]) 1 tab PO BID [facility] Non-Formulary Medication (Levocetirizine Dihydrochloride [Xyzal]) 5 mg PO BEDTIME [facility] Non-Formulary Medication (Lutein [Lutein]) 10 mg PO DAILY [facility] Ondansetron HCl (Zofran Odt) 4 mg PO Q6H PRN PRN Reason: Nausea able to take PO Prednisone (Prednisone) 2 mg PO DAILY [facility] Last Admin: 01/02/17 08:12 Dose: 2 mg Sodium Chloride (Saline Flush) 10 ml FLUSH ASDIRECTED PRN PRN Reason: Keep Vein Open Last Admin: 01/02/17 02:47 Dose: 10 ml Sotalol HCl (Betapace) 120 mg PO BID [facility] Last Admin: 01/02/17 08:14 Dose: 120 mg Warfarin Sodium (Coumadin) 5 mg PO DAILY@1300 [facility] Assessment/Plan Comment:: Assessment and plan - Agitated delirium - 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 She has hyponatremia which is relatively mild but certainly could be contributing to her symptoms. No evidence for infection at this time. Head CT did not suggest acute neurologic complication. She is very confused but otherwise stable. -Discontinue SSRI -Melatonin at bedtime -Combing environment -If behavior issues arise consider Haldol Chronic atrial fibrillation - rate controlled and chronically anticoagulated. -Continue home medication Generalized anxiety disorder - long-standing issues with anxiety that have never been very well controlled. With unsuccessful use of SSRI and alternative treatment regimen may need to be considered but for the time being we will let the medications clear out of her system. Maintenance issues - - DVT prophylaxis - warfarin - GI prophylaxis - PPI - Nutrition - regular diet - Joel catheter - not indicated CODE STATUS - DNR/DNI Admission justification - This patient will be admitted for inpatient services and is medically appropriate meeting medical necessity for inpatient admission as outlined in my documentation. I reasonably expect the patient will require inpatient services that span a period time over 2 midnights. I reasonably expect this patient to be discharged or transferred within 96 hours [facility]. Disposition - anticipate discharge to home with family versus possibly assisted living versus penitentiary after the hospital stay Primary care physician - Dr. Sonja العراقي M.D.
[2017-01-02] MEDS ORDERED: Warfarin 5 MG Tab PO SCH (13:00)
[2017-01-02] MEDS: Digoxin 125 MCG Tab PO SCH (13:15)
[2017-01-02] MEDS: Melatonin 3 MG Tab PO SCH (20:30)
[2017-01-03] MEDS: Sodium Chloride 0.9% 1,000 ML IV SCH (00:34)
[2017-01-03] MEDS: Levothyroxine 50 MCG Tab PO SCH (07:21)
[2017-01-03] MEDS: Ipratropium 0.06% Nasal Spray 15 ML Bottle NAS PRN (08:44)
[2017-01-03] MEDS: predniSONE 1 MG Tab PO SCH (08:45)
[2017-01-03] MEDS: cycloSPORINE Ophth Drops U/D Box of 30 EYEBOTH SCH ×2 (08:45→21:27)
[2017-01-03] MEDS: Furosemide 20 MG Tab PO SCH (08:45)
[2017-01-03] MEDS: Calcium Carbonate 500 MG Tab.Chew PO SCH (08:45)
[2017-01-03] MEDS: Beta-Carotene (Vitamin A) w/Vitamin C & E plus Minerals Tab PO SCH (08:46)
[2017-01-03] MEDS: Losartan 50 MG Tab PO SCH (08:46)
[2017-01-03] MEDS: Sotalol 80 MG Tab PO SCH ×2 (08:47→21:27)
--- NOTE | 2017-01-03 11:09 | PCM.PN ---
- General Info Date of Service: 01/03/17 Functional Status: Reports: Pain Controlled, Tolerating Diet, Ambulating - Review of Systems General: Reports: Weakness. Denies: Fever, Chills Pulmonary: Reports: No Symptoms Cardiovascular: Reports: No Symptoms Gastrointestinal: Reports: No Symptoms Psychiatric: Reports: Confusion Systems Review Comment:: Ms. Huerta is an 86-year-old woman who was admitted because of increased confusion with hallucinations and agitation. The symptoms were felt to a been secondary to initiation of an SSRI, she is slowly improved since the medication has been discontinued. She remains confused but is not agitated or hallucinating today, more alert and interactive. Vital signs have been stable and she has remained afebrile. She was found to have significant hyponatremia at the time of admission and that has improved but is not yet normalized. - Patient Data Vitals - Most Recent: Last Vital Signs Temp 97.6 F 01/03/17 10:58 Pulse 66 01/03/17 10:58 Resp 18 01/03/17 10:58 BP 163/81 H 01/03/17 10:58 Pulse Ox 97 01/03/17 10:58 Weight - Most Recent: 141 lb 15.996 oz I&O - Last 24 Hours: Intake & Output 01/02/17 01/03/17 01/03/17 22:59 06:59 14:59 Intake Total 9 1217 360 Output Total 650 250 Balance 1959 567 110 Lab Results Last 24 Hours: Laboratory Results - last 24 hr 01/03/17 01/03/17 01/03/17 Range/Units 05:45 05:45 05:45 WBC 7.8 (4.5-11.0) K/uL RBC 4.12 (3.30-5.50) M/uL Hgb 12.4 D (12.0-15.0) g/dL Hct 35.1 L (36.0-48.0) % MCV 85 (80-98) fL MCH 30 (27-31) pg MCHC 35 (32-36) % Plt Count 154 (150-400) K/uL PT 16.2 H (9.5-12.0) sec INR 1.49 H (0.80-1.20) Sodium 128 L (140-148) mmol/L Potassium 3.8 (3.6-5.2) mmol/L Chloride 94 L (100-108) mmol/L Carbon Dioxide 27 (21-32) mmol/L Anion Gap 10.8 (5.0-14.0) mmol/L BUN 15 (7-18) mg/dL Creatinine 0.9 (0.6-1.0) mg/dL Est Cr Clr Drug Dosing 31.63 mL/min Estimated GFR (MDRD) 59 L (>60) Glucose 88 (74-106) mg/dL Calcium 7.7 L (8.5-10.1) mg/dL Med Orders - Current: Current Medications Acetaminophen (Tylenol) 650 mg PO Q4H PRN PRN Reason: Pain (Mild 1-3)/fever Calcium Carbonate/Glycine (Tums) 1,250 mg PO DAILY [facility] Last Admin: 01/03/17 08:45 Dose: 1,250 mg Cyclosporine (Restasis) 0 each EYEBOTH BID [facility] Last Admin: 01/03/17 08:45 Dose: 1 drop Digoxin (Lanoxin) 125 mcg PO DAILY@1300 [facility] Last Admin: 01/02/17 13:15 Dose: 125 mcg Diltiazem HCl (Cardizem) 30 mg PO ASDIRECTED PRN PRN Reason: Other Furosemide (Lasix) 20 mg PO DAILY [facility] Last Admin: 01/03/17 08:45 Dose: 20 mg Ipratropium [place] (Atrovent 0.06% Nasal [place]) 0 ml QUE TID PRN PRN Reason: Rhinitis Last Admin: 01/03/17 08:44 Dose: 2 spray Levothyroxine Sodium (Synthroid) 50 mcg PO ACBREAKFAST [facility] Last Admin: 01/03/17 07:21 Dose: 50 mcg Losartan Potassium (Cozaar) 50 mg PO DAILY [facility] Last Admin: 01/03/17 08:46 Dose: 50 mg Melatonin (Melatonin) 9 mg PO BEDTIME [facility] Last Admin: 01/02/17 20:30 Dose: 9 mg Multivitamins/Minerals (Prosight) 1 tab PO DAILY [facility] Last Admin: 01/03/17 08:46 Dose: 1 tab Non-Formulary Medication (Gluc Hcl/Csa/Claire Hy/Hyalur Ac [Glucosamine Chondroitin]) 1 tab PO BID [facility] Non-Formulary Medication (Levocetirizine Dihydrochloride [Xyzal]) 5 mg PO BEDTIME [facility] Non-Formulary Medication (Lutein [Lutein]) 10 mg PO DAILY [facility] Ondansetron HCl (Zofran Odt) 4 mg PO Q6H PRN PRN Reason: Nausea able to take PO Prednisone (Prednisone) 2 mg PO DAILY [facility] Last Admin: 01/03/17 08:45 Dose: 2 mg Sodium Chloride (Saline Flush) 10 ml FLUSH ASDIRECTED PRN PRN Reason: Keep Vein Open Last Admin: 01/02/17 02:47 Dose: 10 ml Sotalol HCl (Betapace) 120 mg PO BID [facility] Last Admin: 01/03/17 08:47 Dose: 120 mg Warfarin Sodium (Coumadin) 5 mg PO DAILY@1300 [facility] Last Admin: 01/02/17 13:17 Dose: 5 mg Discontinued Medications Lactated Ringer's (Ringers, Lactated) 1,000 mls @ 500 mls/hr IV ASDIRECTED [facility] Last Admin: 01/02/17 02:47 Dose: 500 mls/hr Sodium Chloride (Normal Saline) 1,000 mls @ 125 mls/hr IV ASDIRECTED [facility] Last Admin: 01/02/17 12:00 Dose: 125 mls/hr Sodium Chloride (Normal Saline) 1,000 mls @ 75 mls/hr IV ASDIRECTED [facility] Last Admin: 01/03/17 00:34 Dose: 75 mls/hr Lisinopril (Prinivil) 20 mg PO ONETIME ONE Stop: 01/02/17 02:09 Last Admin: 01/02/17 02:20 Dose: 20 mg - Exam Quality Assessment: DVT Prophylaxis General: Alert, Cooperative, No Acute Distress Lungs: Clear to Auscultation, Normal Respiratory Effort Cardiovascular: Regular Rate, Regular Rhythm, No Murmurs GI/Abdominal Exam: Normal Bowel Sounds, Soft, Non-Tender, No Organomegaly Extremities: Normal Inspection, No Pedal Edema Skin: Warm, Dry, Intact - Problem List Review Problem List Initiated/Reviewed/Updated: Yes - My Orders Last 24 Hours: My Active Orders 01/03/17 11:05 Convert IV to Saline Lock [OM.PC] Routine 01/04/17 05:00 BASIC METABOLIC PANEL,BMP [CHEM] Timed INR,PT,PROTHROMBIN TIME [COAG] Timed - Plan Plan:: Assessment and plan - Agitated delirium - 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 Agitation and hallucinations have essentially resolved, hyponatremia has improved -Discontinue SSRI -Melatonin at bedtime -If behavior issues arise consider Haldol Chronic atrial fibrillation - rate controlled and chronically anticoagulated. -Continue home medication Generalized anxiety disorder - long-standing issues with anxiety that have never been very well controlled. With unsuccessful use of SSRI and alternative treatment regimen may need to be considered but for the time being we will let the medications clear out of her system. Maintenance issues - - DVT prophylaxis - warfarin - GI prophylaxis - PPI - Nutrition - regular diet - Joel catheter - not indicated CODE STATUS - DNR/DNI Admission justification - This patient will be admitted for inpatient services and is medically appropriate meeting medical necessity for inpatient admission as outlined in my documentation. I reasonably expect the patient will require inpatient services that span a period time over 2 midnights. I reasonably expect this patient to be discharged or transferred within 96 hours [facility]. Disposition - anticipate discharge to home with family versus possibly assisted living versus snf after the hospital stay Primary care physician - Dr. Casillas
[2017-01-03] MEDS ORDERED: Warfarin 2.5 MG Tab PO ONE (13:00)
[2017-01-03] MEDS: Digoxin 125 MCG Tab PO SCH (13:36)
[2017-01-03] MEDS: Melatonin 3 MG Tab PO SCH (21:26)
[2017-01-04] MEDS: Levothyroxine 50 MCG Tab PO SCH (07:22)
[2017-01-04] MEDS: Losartan 50 MG Tab PO SCH ×2 (07:23→08:36)
[2017-01-04] MEDS: Sotalol 80 MG Tab PO SCH ×3 (07:24→20:58)
[2017-01-04] MEDS: cycloSPORINE Ophth Drops U/D Box of 30 EYEBOTH SCH ×2 (08:37→20:59)
[2017-01-04] MEDS: predniSONE 1 MG Tab PO SCH (08:37)
[2017-01-04] MEDS: Beta-Carotene (Vitamin A) w/Vitamin C & E plus Minerals Tab PO SCH (08:37)
[2017-01-04] MEDS: Furosemide 20 MG Tab PO SCH (08:37)
[2017-01-04] MEDS: Calcium Carbonate 500 MG Tab.Chew PO SCH (08:37)
--- NOTE | 2017-01-04 12:36 | PCM.DCSUM1 ---
Discharge Summary - Hospital Course Brief History: Ms. Huerta is an 86-year-old woman who was admitted through the emergency department with agitation and delirium secondary to medication effect from Celexa. - Discharge Data Discharge Date: 01/04/17 Discharge Disposition: Home, Self-Care 01 Condition: Good - Discharge Diagnosis/Problem(s) (1) Hyponatremia SNOMED Code(s): 56512880 ICD Code: E87.1 - HYPO-OSMOLALITY AND HYPONATREMIA Status: Acute Current Visit: Yes (2) Delirium due to another medical condition, acute, hyperactive SNOMED Code(s): 4134379, 086365341, 783289809 ICD Code: F05 - DELIRIUM DUE TO KNOWN PHYSIOLOGICAL CONDITION Status: Acute Current Visit: Yes (3) Generalized anxiety disorder SNOMED Code(s): 79509301 ICD Code: F41.1 - GENERALIZED ANXIETY DISORDER Status: Chronic Current Visit: Yes (4) Chronic atrial fibrillation SNOMED Code(s): 840519047 ICD Code: I48.2 - CHRONIC ATRIAL FIBRILLATION Status: Chronic Current Visit: Yes - Patient Summary/Data Hospital Course: Sami Huerta is an 86-year-old woman who was admitted through the emergency department with delirium and agitation. She has a known history of dementia as well as ongoing anxiety disorder. She was recently started on Celexa for management of her anxiety and shortly thereafter developed increased delirium and agitation. On review past history family reports that she's had previous similar difficulty when placed on Paxil. Was felt that her symptoms were related to her underlying dementia as well as the recent addition of Celexa. Celexa was stopped at the time of admission and over the next few days of her hospital stay she slowly cleared and was back to baseline by the time of discharge. She will be given a trial of melatonin and Depakote at the time of discharge see if this helps manage her anxiety and intermittent agitation. Activity will be as tolerated and she will resume her usual diet. Follow-up appointment will be scheduled with Dr. Ochoa within one week. Follow-up appointment in Coumadin clinic will be scheduled in 3 days. - Patient Instructions Diet: Usual Diet as Tolerated Activity: As Tolerated Other/Special Instructions: Please schedule follow-up appointment with Dr. Casillas within one week. Please schedule Coumadin clinic appointment in 3 days. - Discharge Plan Prescriptions/Med Rec: Divalproex Sodium [Depakote] 250 mg PO BID #60 tablet. Melatonin 9 mg PO BEDTIME #90 tablet Home Medications: Home Meds Furosemide [Lasix] 20 mg PO DAILY 12/19/13 [History] Levothyroxine [Synthroid] 50 mcg PO DAILY 12/19/13 [History] Losartan [Cozaar] 50 mg PO DAILY 12/19/13 [History] Lutein 10 mg PO DAILY 12/19/13 [History] Sotalol [Betapace] 120 mg PO BID 12/19/13 [History] cycloSPORINE [Restasis] 1 drop EYEBOTH BID 08/19/14 [History] Gluc HCl/Csa/Claire Hy/Hyalur Ac [Glucosamine Chondroitin] 1 tab PO BID 02/11/15 [ History] Ipratropium [Atrovent 0.06% Nasal [place]] 2 sprays QUE TID PRN 02/11/15 [History] Multivitamin with Minerals [Multiple Vitamin] 1 tab PO DAILY 02/11/15 [History] Warfarin [Coumadin] 5 mg PO DAILY 02/13/16 [History] Digoxin [Lanoxin] 125 mcg PO DAILY 12/17/16 [History] Diltiazem [Cardizem] 30 mg PO ASDIRECTED PRN 12/17/16 [History] Prednisone [IJD: Prednisone] 2 mg PO DAILY 12/17/16 [History] Calcium Carbonate 1 tab PO DAILY 01/02/17 [History] Levocetirizine Dihydrochloride [Xyzal] 5 mg PO BEDTIME 01/02/17 [History] Divalproex Sodium [Depakote] 250 mg PO BID #60 tablet. 01/04/17 [Rx] Melatonin 9 mg PO BEDTIME #90 tablet 01/04/17 [Rx] Referrals: Elton Casillas MD [Primary Care Provider] - - Patient Data Vitals - Most Recent: Last Vital Signs Temp 98.4 F 01/04/17 11:08 Pulse 91 01/04/17 11:08 Resp 16 01/04/17 11:08 BP 174/108 H 01/04/17 11:08 Pulse Ox 96 01/04/17 11:08 Weight - Most Recent: 133 lb I&O - Last 24 hours: Intake & Output 01/03/17 01/04/17 01/04/17 22:59 06:59 14:59 Intake Total 720 240 480 Output Total 1000 Balance -280 240 480 Lab Results - Last 24 hrs: Laboratory Results - last 24 hr 01/04/17 01/04/17 Range/Units 04:50 04:50 PT 16.0 H (9.5-12.0) sec INR 1.47 H (0.80-1.20) Sodium 133 L (140-148) mmol/L Potassium 3.8 (3.6-5.2) mmol/L Chloride 96 L (100-108) mmol/L Carbon Dioxide 30 (21-32) mmol/L Anion Gap 10.8 (5.0-14.0) mmol/L BUN 9 (7-18) mg/dL Creatinine 0.7 (0.6-1.0) mg/dL Est Cr Clr Drug Dosing 40.67 mL/min Estimated GFR (MDRD) > 60 (>60) Glucose 93 (74-106) mg/dL Calcium 8.6 (8.5-10.1) mg/dL Med Orders - Current: Current Medications Acetaminophen (Tylenol) 650 mg PO Q4H PRN PRN Reason: Pain (Mild 1-3)/fever Calcium Carbonate/Glycine (Tums) 1,250 mg PO DAILY [facility] Last Admin: 01/04/17 08:37 Dose: 1,250 mg Cyclosporine (Restasis) 0 each EYEBOTH BID [facility] Last Admin: 01/04/17 08:37 Dose: 1 drop Digoxin (Lanoxin) 125 mcg PO DAILY@1300 [facility] Last Admin: 01/03/17 13:36 Dose: 125 mcg Diltiazem HCl (Cardizem) 30 mg PO ASDIRECTED PRN PRN Reason: Other Furosemide (Lasix) 20 mg PO DAILY [facility] Last Admin: 01/04/17 08:37 Dose: 20 mg Ipratropium [place] (Atrovent 0.06% Nasal [place]ley) 0 ml QUE TID PRN PRN Reason: Rhinitis Last Admin: 01/03/17 08:44 Dose: 2 spray Levothyroxine Sodium (Synthroid) 50 mcg PO ACBREAKFAST [facility] Last Admin: 01/04/17 07:22 Dose: 50 mcg Losartan Potassium (Cozaar) 50 mg PO DAILY [facility] Last Admin: 01/04/17 08:36 Dose: Not Given Melatonin (Melatonin) 9 mg PO BEDTIME [facility] Last Admin: 01/03/17 21:26 Dose: 9 mg Multivitamins/Minerals (Prosight) 1 tab PO DAILY [facility] Last Admin: 01/04/17 08:37 Dose: 1 tab Non-Formulary Medication (Gluc Hcl/Csa/Claire Hy/Hyalur Ac [Glucosamine Chondroitin]) 1 tab PO BID [facility] Non-Formulary Medication (Levocetirizine Dihydrochloride [Xyzal]) 5 mg PO BEDTIME [facility] Non-Formulary Medication (Lutein [Lutein]) 10 mg PO DAILY [facility] Ondansetron HCl (Zofran Odt) 4 mg PO Q6H PRN PRN Reason: Nausea able to take PO Prednisone (Prednisone) 2 mg PO DAILY [facility] Last Admin: 01/04/17 08:37 Dose: 2 mg Sodium Chloride (Saline Flush) 10 ml FLUSH ASDIRECTED PRN PRN Reason: Keep Vein Open Last Admin: 01/02/17 02:47 Dose: 10 ml Sotalol HCl (Betapace) 120 mg PO BID [facility] Last Admin: 01/04/17 08:36 Dose: Not Given Discontinued Medications Lactated Ringer's (Ringers, Lactated) 1,000 mls @ 500 mls/hr IV ASDIRECTED [facility] Last Admin: 01/02/17 02:47 Dose: 500 mls/hr Sodium Chloride (Normal Saline) 1,000 mls @ 125 mls/hr IV ASDIRECTED [facility] Last Admin: 01/02/17 12:00 Dose: 125 mls/hr Sodium Chloride (Normal Saline) 1,000 mls @ 75 mls/hr IV ASDIRECTED [facility] Last Admin: 01/03/17 00:34 Dose: 75 mls/hr Lisinopril (Prinivil) 20 mg PO ONETIME ONE Stop: 01/02/17 02:09 Last Admin: 01/02/17 02:20 Dose: 20 mg Warfarin Sodium (Coumadin) 5 mg PO DAILY@1300 [facility] Last Admin: 01/02/17 13:17 Dose: 5 mg Warfarin Sodium (Coumadin) 7.5 mg PO ONETIME ONE Stop: 01/03/17 13:01 Last Admin: 01/03/17 13:34 Dose: 7.5 mg *Q Meaningful Use (DIS) - VTE *Q VTE Criteria *Q: - Stroke *Q Stroke Criteria *Q: - AMI *Q AMI Criteria *Q:
[2017-01-04] MEDS: Digoxin 125 MCG Tab PO SCH (13:01)
--- NOTE | 2017-01-04 14:54 | PCM.PN ---
- General Info Date of Service: 01/04/17 Functional Status: Reports: Tolerating Diet, Ambulating - Review of Systems Pulmonary: Reports: No Symptoms Cardiovascular: Reports: Lightheadedness. Denies: Chest Pain, Palpitations, Orthopnea, PND, Edema Gastrointestinal: Reports: No Symptoms Systems Review Comment:: Ms. Huerta had improved significantly since admission and the plan had been for discharge to home today. Unfortunately after those plans were completed she experienced a near syncopal episode in the bathroom, by description and situation this was likely a vagal episode. After she was back in bed blood pressure and heart rate were within desired range. She had no symptoms of chest pain or pressure or shortness of breath. She reports that she felt very weak and became shaky. - Patient Data Vitals - Most Recent: Last Vital Signs Temp 98.0 F 01/04/17 14:12 Pulse 75 01/04/17 14:12 Resp 12 01/04/17 14:12 BP 155/116 H 01/04/17 14:12 Pulse Ox 96 01/04/17 14:12 Weight - Most Recent: 133 lb I&O - Last 24 Hours: Intake & Output 01/03/17 01/04/17 01/04/17 22:59 06:59 14:59 Intake Total 720 240 720 Output Total 1000 Balance -280 240 720 Lab Results Last 24 Hours: Laboratory Results - last 24 hr 01/04/17 01/04/17 Range/Units 04:50 04:50 PT 16.0 H (9.5-12.0) sec INR 1.47 H (0.80-1.20) Sodium 133 L (140-148) mmol/L Potassium 3.8 (3.6-5.2) mmol/L Chloride 96 L (100-108) mmol/L Carbon Dioxide 30 (21-32) mmol/L Anion Gap 10.8 (5.0-14.0) mmol/L BUN 9 (7-18) mg/dL Creatinine 0.7 (0.6-1.0) mg/dL Est Cr Clr Drug Dosing 40.67 mL/min Estimated GFR (MDRD) > 60 (>60) Glucose 93 (74-106) mg/dL Calcium 8.6 (8.5-10.1) mg/dL Med Orders - Current: Current Medications Acetaminophen (Tylenol) 650 mg PO Q4H PRN PRN Reason: Pain (Mild 1-3)/fever Calcium Carbonate/Glycine (Tums) 1,250 mg PO DAILY [facility] Last Admin: 01/04/17 08:37 Dose: 1,250 mg Cyclosporine (Restasis) 0 each EYEBOTH BID [facility] Last Admin: 01/04/17 08:37 Dose: 1 drop Digoxin (Lanoxin) 125 mcg PO DAILY@1300 [facility] Last Admin: 01/04/17 13:01 Dose: 125 mcg Diltiazem HCl (Cardizem) 30 mg PO ASDIRECTED PRN PRN Reason: Other Furosemide (Lasix) 20 mg PO DAILY [facility] Last Admin: 01/04/17 08:37 Dose: 20 mg Ipratropium [place] (Atrovent 0.06% Nasal [place]) 0 ml QUE TID PRN PRN Reason: Rhinitis Last Admin: 01/03/17 08:44 Dose: 2 spray Levothyroxine Sodium (Synthroid) 50 mcg PO ACBREAKFAST [facility] Last Admin: 01/04/17 07:22 Dose: 50 mcg Losartan Potassium (Cozaar) 50 mg PO DAILY [facility] Last Admin: 01/04/17 08:36 Dose: Not Given Melatonin (Melatonin) 9 mg PO BEDTIME [facility] Last Admin: 01/03/17 21:26 Dose: 9 mg Multivitamins/Minerals (Prosight) 1 tab PO DAILY [facility] Last Admin: 01/04/17 08:37 Dose: 1 tab Non-Formulary Medication (Gluc Hcl/Csa/Claire Hy/Hyalur Ac [Glucosamine Chondroitin]) 1 tab PO BID [facility] Non-Formulary Medication (Levocetirizine Dihydrochloride [Xyzal]) 5 mg PO BEDTIME [facility] Non-Formulary Medication (Lutein [Lutein]) 10 mg PO DAILY [facility] Ondansetron HCl (Zofran Odt) 4 mg PO Q6H PRN PRN Reason: Nausea able to take PO Prednisone (Prednisone) 2 mg PO DAILY [facility] Last Admin: 01/04/17 08:37 Dose: 2 mg Sodium Chloride (Saline Flush) 10 ml FLUSH ASDIRECTED PRN PRN Reason: Keep Vein Open Last Admin: 01/02/17 02:47 Dose: 10 ml Sotalol HCl (Betapace) 120 mg PO BID [facility] Last Admin: 01/04/17 08:36 Dose: Not Given Discontinued Medications Lactated Ringer's (Ringers, Lactated) 1,000 mls @ 500 mls/hr IV ASDIRECTED [facility] Last Admin: 01/02/17 02:47 Dose: 500 mls/hr Sodium Chloride (Normal Saline) 1,000 mls @ 125 mls/hr IV ASDIRECTED [facility] Last Admin: 01/02/17 12:00 Dose: 125 mls/hr Sodium Chloride (Normal Saline) 1,000 mls @ 75 mls/hr IV ASDIRECTED [facility] Last Admin: 01/03/17 00:34 Dose: 75 mls/hr Lisinopril (Prinivil) 20 mg PO ONETIME ONE Stop: 01/02/17 02:09 Last Admin: 01/02/17 02:20 Dose: 20 mg Warfarin Sodium (Coumadin) 5 mg PO DAILY@1300 [facility] Last Admin: 01/02/17 13:17 Dose: 5 mg Warfarin Sodium (Coumadin) 7.5 mg PO ONETIME ONE Stop: 01/03/17 13:01 Last Admin: 01/03/17 13:34 Dose: 7.5 mg - Exam Quality Assessment: DVT Prophylaxis General: Alert, Cooperative, No Acute Distress Lungs: Clear to Auscultation, Normal Respiratory Effort Cardiovascular: Regular Rate, Regular Rhythm, No Murmurs GI/Abdominal Exam: Normal Bowel Sounds, Soft, Non-Tender, No Distention Extremities: Normal Inspection, No Pedal Edema Skin: Warm, Dry, Intact - Problem List & Annotations (1) Hyponatremia SNOMED Code(s): 82024538 Code(s): E87.1 - HYPO-OSMOLALITY AND HYPONATREMIA Status: Acute Current Visit: Yes (2) Delirium due to another medical condition, acute, hyperactive SNOMED Code(s): 6473796, 019608228, 551539027 Code(s): F05 - DELIRIUM DUE TO KNOWN PHYSIOLOGICAL CONDITION Status: Acute Current Visit: Yes (3) Generalized anxiety disorder SNOMED Code(s): 39948367 Code(s): F41.1 - GENERALIZED ANXIETY DISORDER Status: Chronic Current Visit: Yes (4) Chronic atrial fibrillation SNOMED Code(s): 912528580 Code(s): I48.2 - CHRONIC ATRIAL FIBRILLATION Status: Chronic Current Visit: Yes - Problem List Review Problem List Initiated/Reviewed/Updated: Yes - My Orders Last 24 Hours: My Active Orders 01/05/17 11:00 Ready for Discharge [RC] PER UNIT ROUTINE - Plan Plan:: Assessment and plan - Agitated delirium - essentially resolved, continues to have some cognitive impairment related to underlying dementia -Discontinue SSRI -Melatonin at bedtime -Depakote twice daily -If behavior issues arise consider Haldol Near syncopal episode-likely vagal in nature, occurred while she was straining on the toilet to have a bowel movement. -Hold on plan for discharge today, monitor an additional 24 hours Chronic atrial fibrillation - rate controlled and chronically anticoagulated. -Continue home medication Generalized anxiety disorder - long-standing issues with anxiety that have never been very well controlled. With unsuccessful use of SSRI and alternative treatment regimen may need to be considered but for the time being we will let the medications clear out of her system. Maintenance issues - - DVT prophylaxis - warfarin - GI prophylaxis - PPI - Nutrition - regular diet - Joel catheter - not indicated CODE STATUS - DNR/DNI Admission justification - This patient will be admitted for inpatient services and is medically appropriate meeting medical necessity for inpatient admission as outlined in my documentation. I reasonably expect the patient will require inpatient services that span a period time over 2 midnights. I reasonably expect this patient to be discharged or transferred within 96 hours [facility]. Disposition - anticipate discharge to home with family tomorrow Primary care physician - Dr. Casillas
[2017-01-04] MEDS ORDERED: Warfarin 5 MG Tab PO ONE (17:30)
[2017-01-04] MEDS: Melatonin 3 MG Tab PO SCH (20:57)
[2017-01-04] MEDS ORDERED: LEVOCETIRIZINE DIHYDROCHLORIDE 5 MG PO SCH (21:00)
[2017-01-05] MEDS: Levothyroxine 50 MCG Tab PO SCH (07:30)
[2017-01-05] MEDS ORDERED: Losartan 50 MG Tab PO SCH (09:00)
[2017-01-05] MEDS ORDERED: LUTEIN 10 MG PO SCH (09:00)
[2017-01-05] MEDS: Sotalol 80 MG Tab PO SCH (09:56)
[2017-01-05] MEDS: Furosemide 20 MG Tab PO SCH (10:00)
[2017-01-05] MEDS: predniSONE 1 MG Tab PO SCH (10:01)
[2017-01-05] MEDS: Beta-Carotene (Vitamin A) w/Vitamin C & E plus Minerals Tab PO SCH (10:03)
[2017-01-05] MEDS: cycloSPORINE Ophth Drops U/D Box of 30 EYEBOTH SCH (10:04)
[2017-01-05] MEDS: Calcium Carbonate 500 MG Tab.Chew PO SCH (10:04)
[2017-01-05] MEDS: Digoxin 125 MCG Tab PO SCH (13:09)
[2017-01-05 13:23] VITALS: BP 123/62
== END 2017-01-05 14:20 | disposition home or self-care (01) | DRG 641 ==
LOC: JP.ED 01:29 → UNDOADMOB 04:08 → OBSVTOIN 04:08 → JP.MS 04:08 → INTOOBSV 04:08 → JP.MS 04:40 → OBSVTOIN 04:40 → UNDODISIN 01-05 14:20
PROVIDERS: ADMIT Internal Medicine; ATTEND Hospitalist
DX: E87.1 Hypo-osmolality and hyponatremia (principal); F05 Delirium due to known physiological condition; R55 Syncope and collapse; F41.1 Generalized anxiety disorder; I48.2 Chronic atrial fibrillation; Z79.01 Long term (current) use of anticoagulants; E78.00 Pure hypercholesterolemia, unspecified; K21.9 Gastro-esophageal reflux disease without esophagitis; I10 Essential (primary) hypertension; E03.9 Hypothyroidism, unspecified; M81.0 Age-related osteoporosis without current pathological fracture; Z79.899 Other long term (current) drug therapy
CPT/HCPCS: 36415; 70450; 80053; 80162; 80305; 81001; 82140; 83605; 84443; 84484; 85025; 85610; 85730; 96360; 99285; A9270; J7050; J7120; 80048; 85027; 99284; J7040

== ENCOUNTER 2017-04-10 10:32 | Emergency (ER) | payer MEDICARE, BC ==
[2017-04-10 11:13] VITALS: BP 103/54
--- NOTE | 2017-04-10 11:54 | EDM.PDOC ---
ED HPI GENERAL MEDICAL PROBLEM - General Chief Complaint: Fever Stated Complaint: FEVER Time Seen by Provider: 04/10/17 11:36 Source of Information: Reports: Patient, RN Notes Reviewed History Limitations: Reports: No Limitations - History of Present Illness INITIAL COMMENTS - FREE TEXT/NARRATIVE: 86-year-old female presents emergency department today with complaint of urinary tract infection, she was recently diagnosed with the urinary tract infection positive urine culture and sensitivities pending started on Macrobid unfortunately she states she's not better after 2 doses of medication has now developed a fever up to 101 still has burning with urination - Related Data Allergies Allergy/AdvReac Type Severity Reaction Status Date / Time allopurinol Allergy Cannot Verified 04/10/17 10:59 Remember amlodipine besylate Allergy Swelling Verified 04/10/17 10:59 [From Norvasc] cilostazol [From Pletal] Allergy Headache Verified 04/10/17 10:59 iodine Allergy Hives Verified 04/10/17 10:59 niacin Allergy Hives Verified 04/10/17 10:59 paroxetine HCl [From Paxil] Allergy Other Verified 04/10/17 10:59 acetaminophen AdvReac Hallucinati Verified 04/10/17 10:59 [From Darvocet-N] ons alendronate sodium AdvReac Stomach Verified 04/10/17 10:59 [From Fosamax] Upset aspirin AdvReac Stomach Verified 04/10/17 10:59 Ache codeine AdvReac Stomach Verified 04/10/17 10:59 Upset cyclobenzaprine HCl AdvReac Syncope Verified 04/10/17 10:59 [From Flexeril] lorazepam [From Ativan] AdvReac Tremors Verified 04/10/17 10:59 propoxyphene napsylate AdvReac Hallucinati Verified 04/10/17 10:59 [From Darvocet-N] ons raloxifene HCl [From Evista] AdvReac Hallucinati Verified 04/10/17 10:59 ons Home Meds: Home Meds Furosemide [Lasix] 20 mg PO DAILY 12/19/13 [History] Levothyroxine [Synthroid] 50 mcg PO DAILY 12/19/13 [History] Losartan [Cozaar] 50 mg PO DAILY 12/19/13 [History] Lutein 10 mg PO DAILY 12/19/13 [History] Sotalol [Betapace] 120 mg PO BID 12/19/13 [History] cycloSPORINE [Restasis] 1 drop EYEBOTH BID 08/19/14 [History] Gluc HCl/Csa/Claire Hy/Hyalur Ac [Glucosamine Chondroitin] 1 tab PO BID 02/11/15 [ History] Ipratropium [Atrovent 0.06% Nasal [place]] 2 sprays QUE TID PRN 02/11/15 [History] Multivitamin with Minerals [Multiple Vitamin] 1 tab PO DAILY 02/11/15 [History] Warfarin [Coumadin] 5 mg PO DAILY 02/13/16 [History] Digoxin [Lanoxin] 125 mcg PO DAILY 12/17/16 [History] Diltiazem IR [Cardizem] 30 mg PO ASDIRECTED PRN 12/17/16 [History] Prednisone [IJD: Prednisone] 2 mg PO DAILY 12/17/16 [History] Calcium Carbonate 1 tab PO DAILY 01/02/17 [History] Levocetirizine Dihydrochloride [Xyzal] 5 mg PO BEDTIME 01/02/17 [History] Divalproex Sodium [Depakote] 250 mg PO BID #60 tablet. 01/04/17 [Rx] Melatonin 9 mg PO BEDTIME #90 tablet 01/04/17 [Rx] Nitrofurantoin Macrocrystal [Macrodantin] 1 tab PO BID 04/10/17 [History] Past Medical History HEENT History: Reports: Allergic Rhinitis, Cataract, Hard of Hearing, Impaired Vision, Sinusitis Cardiovascular History: Reports: Afib, Arrhythmia, Blood Clots/VTE/DVT, High Cholesterol, Hypertension, Pacemaker Gastrointestinal History: Reports: Gastritis, GERD, Helicobacter Pylori [employer] History: Reports: , Spontaneous Musculoskeletal History: Reports: Arthritis, Back Pain, Chronic, Fracture, Osteoporosis Neurological History: Reports: Headaches, Chronic, Other (See Below) Other Neuro History: acoustic neuroma-brain, benign Psychiatric History: Reports: Anxiety, Mood Swings Endocrine/Metabolic History: Reports: Hypothyroidism, Osteoporosis Hematologic History: Reports: Anticoagulation Therapy Oncologic (Cancer) History: Reports: Other (See Below) Other Oncologic History: skin CA Dermatologic History: Reports: Eczema - Infectious Disease History Infectious Disease History: Reports: Chicken Pox, Measles, Mumps - Past Surgical History HEENT Surgical History: Reports: Adenoidectomy, Cataract Surgery, Tonsillectomy Cardiovascular Surgical History: Reports: Pacer Endocrine Surgical History: Reports: None Neurological Surgical History: Reports: Thoracic Spine, Other (See Below) Other Neurological Surgeries/Procedures: brain surgery for acoustic neuroma- brain Musculoskeletal Surgical History: Reports: Other (See Below) Other Musculoskeletal Surgeries/Procedures:: femur repair Social & Family History - Family History Family Medical History: Noncontributory Cardiac: Reports: Hypertension Other Cardiac Family History: Sister had stroke. Musculoskeletal: Reports: Arthritis, Osteoporosis Neurological: Reports: CVA Psychiatric: Reports: Anxiety Oncologic: Reports: Leukemia - Tobacco Use Smoking Status *Q: Never Smoker Second Hand Smoke Exposure: No - Caffeine Use Caffeine Use: Reports: Coffee - Alcohol Use Days Per Week of Alcohol Use: 0 - Recreational Drug Use Recreational Drug Use: No ED ROS GENERAL - Review of Systems Review Of Systems: See Below Constitutional: Reports: Fever, Chills Respiratory: Reports: No Symptoms Cardiovascular: Reports: No Symptoms GI/Abdominal: Reports: No Symptoms : Reports: Dysuria ED EXAM, RENAL/ - Physical Exam Exam: See Below Exam Limited By: No Limitations General Appearance: Alert, WD/WN, No Apparent Distress Respiratory/Chest: No Respiratory Distress GI/Abdominal: Normal Bowel Sounds, Soft, Non-Tender, No Organomegaly, No Distention, No Mass Back Exam: No: CVA Tenderness (R), CVA Tenderness (L) Course - Vital Signs Last Recorded V/S: Last Vital Signs Temp 97.3 F 04/10/17 11:09 Pulse 60 04/10/17 11:09 Resp 14 04/10/17 11:09 BP 103/54 L 04/10/17 11:09 Pulse Ox 94 L 04/10/17 11:09 - Orders/Labs/Meds Orders: Active Orders 24 hr Category Date Time Status UA W/MICROSCOPIC [URIN] Urgent Lab 04/10/17 10:33 Uncollected Departure - Departure Time of Disposition: 11:54 Disposition: Home, Self-Care 01 Condition: Good Clinical Impression: UTI, Urinary tract infectious disease - Discharge Information Referrals: Elton Casillas MD [Primary Care Provider] - Forms: ED Department Discharge Additional Instructions: Stop your Macrobid at this time, recommend starting the ciprofloxacin 1 tablet by mouth twice a day 7 days, Please followup with your primary care provider in 3-5 days if not better, please call return to the emergency department with worsening of symptoms. - My Orders Last 24 Hours: My Active Orders 04/10/17 10:33 UA W/MICROSCOPIC [URIN] Urgent - Assessment/Plan Last 24 Hours: My Active Orders 04/10/17 10:33 UA W/MICROSCOPIC [URIN] Urgent Plan: Assessment Acuity = acute Site and laterality = urinary tract infection Etiology = probable bacterial cause Manifestations = dysuria Location of injury = Home Lab values = none however because the culture and sensitivities not available at this time elected to change antibiotics because of clinical failure Plan She will discontinue the Macrobid start Cipro 250 by mouth twice a day 7 days follow-up with primary care in 3-5 days if no improvement Patient was in agreement with the plan all questions were answered, they were instructed to return to the emergency department or call for worsening symptoms. This note was dictated using [employer] voice recognition software please call with any questions.
== END 2017-04-10 12:22 | disposition home or self-care (01) ==
LOC: JP.ED 10:32
DX: N39.0 Urinary tract infection, site not specified (principal); Z88.8 Allergy status to other drugs, medicaments and biological substances; Z88.5 Allergy status to narcotic agent; E78.00 Pure hypercholesterolemia, unspecified; I10 Essential (primary) hypertension; Z88.6 Allergy status to analgesic agent; Z79.01 Long term (current) use of anticoagulants; Z79.899 Other long term (current) drug therapy
CPT/HCPCS: 99284

== ENCOUNTER 2017-05-08 21:33 | Observation (INO) | payer MEDICARE, BC ==
[2017-05-08] MEDS ORDERED: cloNIDine 0.1 MG Tab PO ONE (21:44)
[2017-05-08] MEDS ORDERED: Losartan 50 MG Tab PO ONE (21:44)
[2017-05-08] MEDS ORDERED: Sodium Chloride 0.9% 10 ML Syringe FLUSH PRN (21:47)
[2017-05-08] MEDS ORDERED: HYDROmorphone 0.5 MG/0.5 ML Syringe IVPUSH ONE (21:48)
[2017-05-08] MEDS ORDERED: Ketorolac 30 MG/ML SDV IVPUSH ONE (21:58)
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
[2017-05-08] MEDS ORDERED: Ondansetron 4 MG/2 ML SDV IVPUSH ONE (22:43)
[2017-05-08] MEDS: Sodium Chloride 0.9% 1,000 ML IV SCH (22:49)
[2017-05-09] MEDS ORDERED: Ondansetron 4 MG/2 ML SDV IV PRN (00:49)
[2017-05-09] MEDS ORDERED: WARFARIN PO SCH (01:00)
[2017-05-09] MEDS ORDERED: Sodium Chloride 0.9% 1,000 ML IV SCH (01:00)
[2017-05-09] MEDS ORDERED: Hypromellose 0.4% Ophth Soln 15 ML Bottle EYEBOTH SCH ×2 (06:00→10:00)
[2017-05-09] MEDS: Sodium Chloride 0.9% 1,000 ML IV SCH (06:34)
[2017-05-09] MEDS ORDERED: LACTASE PO SCH (08:00)
[2017-05-09] MEDS: Acetaminophen 325 MG Tab PO PRN ×3 (08:54→22:19)
[2017-05-09] MEDS ORDERED: Non-Formulary Medication 1 Each (Furosemide [Lasix] 20 MG) PO SCH (09:00)
[2017-05-09] MEDS ORDERED: SOTALOL 120 MG PO SCH (09:00)
[2017-05-09] MEDS ORDERED: FLUTICASONE PROPIONATE 16 GM NS SCH (09:00)
[2017-05-09] MEDS ORDERED: DIVALPROEX SODIUM 250 MG PO SCH (09:00)
[2017-05-09] MEDS ORDERED: LUTEIN 25 MG PO SCH (09:00)
[2017-05-09] MEDS ORDERED: LEVOTHYROXINE 50 MCG PO SCH (09:00)
[2017-05-09] MEDS ORDERED: DIGOXIN 125 MCG PO SCH (09:00)
[2017-05-09] MEDS ORDERED: PREDNISONE 2 MG PO SCH (09:00)
[2017-05-09] MEDS ORDERED: SUCROSE PO SCH (09:00)
[2017-05-09] MEDS ORDERED: Non-Formulary Medication 1 Each (Cyclosporine [Restasis] 1 DROP) EYEBOTH SCH (09:00)
[2017-05-09] MEDS ORDERED: CHOLESTYRAMINE PO SCH (09:00)
[2017-05-09] MEDS ORDERED: Non-Formulary Medication 1 Each (Omeprazole [Omeprazole] 20 MG) PO SCH (09:00)
[2017-05-09] MEDS ORDERED: Non-Formulary Medication 1 Each (Losartan [Cozaar] 50 MG) PO SCH (09:00)
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
--- NOTE | 2017-05-09 09:50 | CR ---
5 lumbar type vertebral bodies. Prior vertebroplasty change T12 vertebral body. Height loss at L3 greyson tebral body with Schmorl's node appears similar compared to MRI lumbar spine. Schmorl's node at L1 ve rtebral body appears similar as well. Remaining vertebral body heights are maintained. Advanced disc height loss all levels.
--- NOTE | 2017-05-09 12:20 | PCM.PN ---
- General Info Date of Service: 05/09/17 Subjective Update: Ms. Huerta is an 86-year-old woman who was admitted early this morning by Dr. Enriquez because of severe back pain. She does have a ongoing history of problems with back pain in this experienced previous spinal compression fractures. This past week was participating in a low impact exercise program when she feels she strained something in her back. Since then the pain has become progressively worse to the point that she has severe pain with movement. X-rays show evidence of old compression fractures. Pain is relatively well controlled when she is at rest but does increase significantly with activity. She denies any symptoms of weakness or numbness in the lower extremities. Functional Status: Reports: Pain Controlled, Tolerating Diet - Review of Systems General: Reports: Weakness. Denies: Fever, Chills Pulmonary: Reports: No Symptoms Cardiovascular: Reports: No Symptoms Gastrointestinal: Reports: No Symptoms Musculoskeletal: Reports: Back Pain. Denies: Leg Pain, Foot Pain - Patient Data Vitals - Most Recent: Last Vital Signs Temp 96.8 F 05/09/17 08:32 Pulse 60 05/09/17 08:32 Resp 18 05/09/17 08:32 BP 168/80 H 05/09/17 08:32 Pulse Ox 97 05/09/17 08:32 Weight - Most Recent: 161 lb 6.054 oz I&O - Last 24 Hours: Intake & Output 05/08/17 05/09/17 05/09/17 22:59 06:59 14:59 Intake Total 437 240 Output Total 900 Balance -463 240 Lab Results Last 24 Hours: Laboratory Results - last 24 hr 05/09/17 Range/Units 05:30 Sodium 129 L (140-148) mmol/L Potassium 3.7 (3.6-5.2) mmol/L Chloride 93 L (100-108) mmol/L Carbon Dioxide 29 (21-32) mmol/L Anion Gap 10.7 (5.0-14.0) mmol/L BUN 8 (7-18) mg/dL Creatinine 0.6 (0.6-1.0) mg/dL Est Cr Clr Drug Dosing 47.45 mL/min Estimated GFR (MDRD) > 60 (>60) Glucose 86 (74-106) mg/dL Calcium 8.2 L (8.5-10.1) mg/dL Med Orders - Current: Current Medications Acetaminophen (Tylenol) 650 mg PO Q4H PRN PRN Reason: Pain (Mild 1-3)/fever Last Admin: 05/09/17 08:54 Dose: 650 mg Artificial Tears (Natural Balance Tears) 0 ml EYEBOTH QID [facility] Calcium Carbonate/Glycine (Tums) 1,250 mg PO DAILY TED Non-Formulary Medication (Cholestyramine/Sucrose [Cholestyramine]) 4 gm PO DAILY TED Non-Formulary Medication (Cranberry [Cranberry]) 400 mg PO DAILY TED Non-Formulary Medication (Cyclosporine [Restasis]) 1 drop EYEBOTH BID TED Non-Formulary Medication (Cyclosporine [Restasis]) 1 drop EYEBOTH BID TED Non-Formulary Medication (Digoxin [Lanoxin]) 125 mcg PO DAILY TED Non-Formulary Medication (Divalproex Sodium [Depakote]) 250 mg PO BID TED Non-Formulary Medication (Fluticasone Propionate [Flonase]) 16 gm NS DAILY TED Non-Formulary Medication (Furosemide [Lasix]) 20 mg PO DAILY TED Non-Formulary Medication (Gluc Hcl/Csa/Claire Hy/Hyalur Ac [Glucosamine Chondroitin]) 1 tab PO BID TED Non-Formulary Medication (Lactase [Lactaid]) 1 tab PO BIDMEALS TED Non-Formulary Medication (Levocetirizine Dihydrochloride [Xyzal]) 5 mg PO BEDTIME TED Non-Formulary Medication (Levothyroxine [Synthroid]) 50 mcg PO DAILY TED Non-Formulary Medication (Losartan [Cozaar]) 50 mg PO DAILY TED Non-Formulary Medication (Lutein [Lutein]) 25 mg PO DAILY TED Non-Formulary Medication (Melatonin [Melatonin]) 9 mg PO BEDTIME TED Non-Formulary Medication (Mineral Oil/Petrolatum,White [Refresh P.M.]) 1 applic OP BEDTIME TED Non-Formulary Medication (Omeprazole [Omeprazole]) 20 mg PO DAILY TED Non-Formulary Medication (Prednisone [Ijd: Prednisone]) 2 mg PO DAILY TED Non-Formulary Medication (Sotalol [Betapace]) 120 mg PO BID TED Non-Formulary Medication (Warfarin [Coumadin]) 5 - 6 mg PO ASDIRECTED TED Ondansetron HCl (Zofran) 4 mg IV Q4H PRN PRN Reason: Nausea/Vomiting Sodium Chloride (Saline Flush) 10 ml FLUSH ASDIRECTED PRN PRN Reason: Keep Vein Open Last Admin: 05/08/17 22:29 Dose: 10 ml Discontinued Medications Artificial Tears (Natural Balance Tears) 1 ml EYEBOTH QID [facility] Last Admin: 05/09/17 05:36 Dose: Not Given Clonidine HCl (Catapres) 0.1 mg PO ONETIME ONE Stop: 05/08/17 21:45 Last Admin: 05/08/17 22:13 Dose: 0.1 mg Hydromorphone HCl (Dilaudid) 0.5 mg IVPUSH ONETIME ONE Stop: 05/08/17 21:49 Last Admin: 05/08/17 22:13 Dose: 0.5 mg Sodium Chloride (Normal Saline) 1,000 mls @ 150 mls/hr IV ASDIRECTED [facility] Last Admin: 05/09/17 06:34 Dose: 150 mls/hr Sodium Chloride (Normal Saline) 1,000 mls @ 125 mls/hr IV ASDIRECTED [facility] Ketorolac Tromethamine (Toradol) 15 mg IVPUSH ONETIME ONE Stop: 05/08/17 21:59 Last Admin: 05/08/17 22:11 Dose: 15 mg Losartan Potassium (Cozaar) 50 mg PO ONETIME ONE Stop: 05/08/17 21:45 Last Admin: 05/08/17 22:29 Dose: 50 mg Ondansetron HCl (Zofran) 4 mg IVPUSH ONETIME ONE Stop: 05/08/17 22:44 Last Admin: 05/08/17 22:47 Dose: 4 mg - Exam Quality Assessment: DVT Prophylaxis General: Alert, Oriented, Cooperative, Moderate Distress (With activity) Lungs: Clear to Auscultation, Normal Respiratory Effort Cardiovascular: Regular Rate, Regular Rhythm, Irregular Rhythm, Murmurs. No: Bradycardia, Tachycardia GI/Abdominal Exam: Soft, Non-Tender, No Organomegaly, No Distention Extremities: Non-Tender, No Pedal Edema Skin: Warm, Dry - Problem List Review Problem List Initiated/Reviewed/Updated: Yes - My Orders Last 24 Hours: My Active Orders 05/09/17 10:44 Consult to Physical Therapy [PT Evaluation and Treatment] [CONS] Routine Convert IV to Saline Lock [OM.PC] Routine 05/09/17 12:13 INR,PT,PROTHROMBIN TIME [COAG] Urgent 05/10/17 05:00 INR,PT,PROTHROMBIN TIME [COAG] Timed - Plan Plan:: ASSESSMENT AND PLAN SEVERE BACK PAIN-likely secondary to muscle spasm, no recent history or findings to suggest new compression fracture -Tylenol as needed for pain -Avoid narcotics if she is experienced significant delirium with use of these medications -Avoid use of muscle relaxants because of delirium -Physical therapy consult MAINTENANCE ISSUES -DVT prophylaxis; current therapy with warfarin should provide adequate DVT prophylaxis -GI prophylaxis; not indicated -Joel catheter; not indicated -Nutrition; regular diet -Nicotine dependence; not required CODE STATUS-DNR/DNI ADMISSION STATUS-patient will be admitted to inpatient status, expect at least a 2 night hospital stay for evaluation and management of problems as outlined above. At the time of this admission I do not reasonably expected evaluation and management of this problem will require more than a 96 hour hospital stay. DISPOSITION-anticipate discharge back to assisted living after her hospital stay PRIMARY CARE PROVIDER-
[2017-05-09] MEDS ORDERED: Warfarin 5 MG Tab (PTOM) PO SCH (15:00)
[2017-05-09] MEDS: CRANBERRY 500 MG PO SCH (16:16)
[2017-05-09] MEDS: Furosemide 20 MG Tab (PTOM) PO SCH (16:16)
[2017-05-09] MEDS: OMEPRAZOLE 20MG (PTOM) PO SCH (16:16)
[2017-05-09] MEDS: SOTALOL 120 MG PO SCH ×2 (16:17→20:16)
[2017-05-09] MEDS: PREDNISONE 1 MG PO SCH (16:17)
[2017-05-09] MEDS: DIGOXIN 125 MCG PO SCH (16:18)
[2017-05-09] MEDS: DIVALPROEX SODIUM 250 MG PO SCH ×2 (16:18→20:15)
[2017-05-09] MEDS: LOSARTAN 50 MG PO SCH (16:21)
[2017-05-09] MEDS: cycloSPORINE Ophth Drops U/D Box of 30 EYEBOTH SCH ×2 (16:22→20:17)
[2017-05-09] MEDS: LUTEIN 20 MG PO SCH (16:23)
[2017-05-09] MEDS: Calcium Carbonate 500 MG Tab.Chew PO SCH (16:28)
[2017-05-09] MEDS: REFRESH LIQUIGEL EYEBOTH SCH ×2 (16:29→23:04)
[2017-05-09] MEDS: Levothyroxine 50 MCG Tab PO SCH (18:07)
[2017-05-09] MEDS: Cholestyramine/Sucrose Powder 4 GM Packet PO SCH (18:07)
[2017-05-09] MEDS: SIMETHICONE 80 MG PO SCH (18:47)
[2017-05-09] MEDS: MELATONIN 3 MG PO SCH (20:15)
[2017-05-09] MEDS: GLUCOSAMINE PO SCH (20:18)
[2017-05-09] MEDS: XYZAL 5 MG PO SCH (20:18)
[2017-05-09] MEDS: CHONDROITIN PO SCH (20:18)
[2017-05-09] MEDS ORDERED: MELATONIN 9 MG PO SCH (21:00)
[2017-05-09] MEDS ORDERED: Non-Formulary Medication 1 Each (Levocetirizine Dihydrochloride [Xyzal] 5 MG) PO SCH (21:00)
[2017-05-10] MEDS: Acetaminophen 325 MG Tab PO PRN ×4 (05:21→19:59)
[2017-05-10] MEDS: REFRESH LIQUIGEL EYEBOTH SCH ×4 (05:46→23:18)
[2017-05-10] MEDS: Levothyroxine 50 MCG Tab PO SCH (07:31)
[2017-05-10] MEDS: OMEPRAZOLE 20MG (PTOM) PO SCH (07:32)
[2017-05-10] MEDS: SIMETHICONE 80 MG PO SCH ×2 (08:42→16:04)
[2017-05-10] MEDS: Cholestyramine/Sucrose Powder 4 GM Packet PO SCH (08:43)
[2017-05-10] MEDS: LOSARTAN 50 MG PO SCH (08:44)
[2017-05-10] MEDS: DIVALPROEX SODIUM 250 MG PO SCH ×2 (08:45→20:01)
[2017-05-10] MEDS: CRANBERRY 500 MG PO SCH (08:45)
[2017-05-10] MEDS: Fluticasone Propionate Nasal Spray 16 GM Bottle NAS SCH (08:47)
[2017-05-10] MEDS: PREDNISONE 1 MG PO SCH (08:48)
[2017-05-10] MEDS: Furosemide 20 MG Tab (PTOM) PO SCH (08:48)
[2017-05-10] MEDS: Calcium Carbonate 500 MG Tab.Chew PO SCH (08:49)
[2017-05-10] MEDS: GLUCOSAMINE PO SCH ×2 (08:50→20:00)
[2017-05-10] MEDS: CHONDROITIN PO SCH ×2 (08:50→20:00)
[2017-05-10] MEDS: LUTEIN 20 MG PO SCH (08:51)
[2017-05-10] MEDS: cycloSPORINE Ophth Drops U/D Box of 30 EYEBOTH SCH ×2 (08:52→20:01)
[2017-05-10] MEDS: SOTALOL 120 MG PO SCH ×2 (09:19→20:02)
[2017-05-10] MEDS: DIGOXIN 125 MCG PO SCH (12:53)
[2017-05-10] MEDS ORDERED: Warfarin 5 MG Tab (PTOM) PO SCH (13:00)
--- NOTE | 2017-05-10 14:28 | CT ---
CT thoracic spine. Total DLP 675. Findings: T1-T3 vertebral bodies maintain height. There is a compression fracture of the superior end plate of T4 with mild height loss. No definitive lucency. T5 demonstrates a moderate compression frac ture with 50% height loss. Faint central lucency. No soft tissue swelling.. T6 vertebral body maintai ns height. T7 vertebral body demonstrates a moderate compression fracture without appreciable lucency at the fracture site. Approximately 50% height loss. T8 demonstrates a moderate to severe compressio n fracture. 60-70% vertebral body height loss. No definitive lucency. T9 demonstrates a superior endp late compression fracture. No definitive lucency approximately 20-30% height loss. T10 vertebral body demonstrates a mild compression fracture. This is previously treated with methylme thacrylate. T11 vertebral body maintains height. T12 vertebral body demonstrate a mild-moderate compr ession fracture there is methylmethacrylate indicating prior treatment. There is mild canal stenosis at T10-11 and mild canal stenosis at T7-8. Impression: 1. Multiple compression fractures throughout the thoracic spine. These appear remote. T5 is age-indet erminate as there is a subtle lucency. MRI would be better for acuity. If symptoms persist consider M DE follow-up.
--- NOTE | 2017-05-10 14:36 | CT ---
CT lumbar spine. Total DLP 675. Findings: 5 lumbar type vertebral bodies. Schmorl's node superior and plate L1 with a moderate compre ssion fracture. No definitive lucency. L2 vertebral body demonstrates a mild superior endplate compression fracture. No definitive lucency. L3 vertebral body demonstrates a moderate compression fracture. No definitive lucency. L4 vertebral body demonstrates mild height loss at the superior endplate indicate a mild compression deformity. No definitive lucency within the vertebral body. L5 vertebral body maintains height. 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 Irregularity within the pos terior ilium could indicate bone graft donor site. Correlate clinically. There is moderate side-side canal stenosis at L3-4. L4-5 demonstrates severe canal stenosis. Severe right-sided foraminal narrowi ng. Moderate left-sided foraminal narrowing. Moderate right-sided foraminal narrowing L5-S1. Osteopenia within the sacrum. Impression: 1. Multiple compression deformities throughout the lumbar spine as described above. No definitive liz ency to indicate acute fracture. MRI would be more sensitive.
--- NOTE | 2017-05-10 15:25 | PCM.PN ---
- General Info Date of Service: 05/10/17 Subjective Update: Ms. Huerta has continued to experience severe mid back pain. CT scan of the thoracic and lumbar spine were obtained today and showed evidence of old compression fractures but nothing that appeared to be acute. She continues to require assistance of at least 1 person for transfers and ambulation. - Patient Data Vitals - Most Recent: Last Vital Signs Temp 97.1 F 05/10/17 14:28 Pulse 59 L 05/10/17 14:28 Resp 18 05/10/17 14:28 BP 172/74 H 05/10/17 14:28 Pulse Ox 98 05/10/17 14:28 Weight - Most Recent: 161 lb 6.054 oz I&O - Last 24 Hours: Intake & Output 05/10/17 05/10/17 05/10/17 06:59 14:59 22:59 Intake Total 750 1110 Output Total 300 Balance 750 810 Lab Results Last 24 Hours: Laboratory Results - last 24 hr 05/10/17 Range/Units 05:00 PT 33.8 H (9.5-12.0) sec INR 3.02 H (0.80-1.20) Med Orders - Current: Current Medications Acetaminophen (Tylenol) 650 mg PO Q4H PRN PRN Reason: Pain (Mild 1-3)/fever Last Admin: 05/10/17 12:55 Dose: 650 mg Calcium Carbonate/Glycine (Tums) 1,250 mg PO DAILY [facility] Last Admin: 05/10/17 08:49 Dose: 1,250 mg Cholestyramine Resin (Cholestyramine Packet) 4 gm PO DAILY [facility] Last Admin: 05/10/17 08:43 Dose: Not Given Cyclosporine (Restasis) 0 each EYEBOTH BID [facility] Last Admin: 05/10/17 08:52 Dose: 1 drop Digoxin (Lanoxin) 125 mcg PO DAILY@1300 [facility] Last Admin: 05/10/17 12:53 Dose: 125 mcg Divalproex Sodium (Depakote Er) 250 mg PO BID [facility] Last Admin: 05/10/17 08:45 Dose: 250 mg Fluticasone Propionate (Flonase) 0 gm QUE DAILY [facility] Last Admin: 05/10/17 08:47 Dose: Not Given Furosemide (Lasix) 20 mg PO DAILY [facility] Last Admin: 05/10/17 08:48 Dose: 20 mg Levothyroxine Sodium (Synthroid) 50 mcg PO ACBREAKFAST [facility] Last Admin: 05/10/17 07:31 Dose: 50 mcg Losartan Potassium (Cozaar) 50 mg PO DAILY [facility] Last Admin: 05/10/17 08:44 Dose: 50 mg Melatonin (Melatonin) 9 mg PO BEDTIME [facility] Last Admin: 05/09/17 20:15 Dose: 9 mg Cranberry [Cranberry (] 500 Mg (Ptom)) 500 mg PO DAILY [facility] Last Admin: 05/10/17 08:45 Dose: 500 mg Non-Formulary Medication (Mineral Oil/Petrolatum,White [Refresh P.M.]) 1 applic OP BEDTIME [facility] Refresh Liquigel * (Pom*) 0 each EYEBOTH QID [facility] Last Admin: 05/10/17 09:00 Dose: 1 each Ondansetron HCl (Zofran) 4 mg IV Q4H PRN PRN Reason: Nausea/Vomiting Omeprazole 20mg ( (Ptom)) 0 each PO ACBREAKFAST [facility] Last Admin: 05/10/17 07:32 Dose: 1 each Sotalol 120mg (Ptom) 0 each PO BID [facility] Last Admin: 05/10/17 09:19 Dose: 1 each Glucosamine/ (Chondroitin (Ptom)) 0 each PO BID [facility] Last Admin: 05/10/17 08:50 Dose: 1 each Xyzal 5mg (Ptom) 0 each PO BEDTIME [facility] Last Admin: 05/09/17 20:18 Dose: 1 each Lutein 20mg (Ptom) 0 each PO DAILY [facility] Last Admin: 05/10/17 08:51 Dose: 1 each Prednisone (Prednisone) 2 mg PO DAILY [facility] Last Admin: 05/10/17 08:48 Dose: 2 mg Simethicone (Simethicone) 80 mg PO BIDMEALS [facility] Last Admin: 05/10/17 08:42 Dose: 80 mg Sodium Chloride (Saline Flush) 10 ml FLUSH ASDIRECTED PRN PRN Reason: Keep Vein Open Last Admin: 05/08/17 22:29 Dose: 10 ml Warfarin Sodium (Coumadin) 7.5 mg PO MoFr@1300 [facility] Last Admin: 05/09/17 16:24 Dose: 7.5 mg Warfarin Sodium (Coumadin) 5 mg PO SuTuWeThSa@1300 [facility] Warfarin Sodium (Coumadin) 2.5 mg PO ONETIME ONE Stop: 05/10/17 15:20 Discontinued Medications Artificial Tears (Natural Balance Tears) 1 ml EYEBOTH QID [facility] Last Admin: 05/09/17 05:36 Dose: Not Given Artificial Tears (Natural Balance Tears) 0 ml EYEBOTH QID [facility] Last Admin: 05/09/17 18:10 Dose: Not Given Clonidine HCl (Catapres) 0.1 mg PO ONETIME ONE Stop: 05/08/17 21:45 Last Admin: 05/08/17 22:13 Dose: 0.1 mg Hydromorphone HCl (Dilaudid) 0.5 mg IVPUSH ONETIME ONE Stop: 05/08/17 21:49 Last Admin: 05/08/17 22:13 Dose: 0.5 mg Sodium Chloride (Normal Saline) 1,000 mls @ 150 mls/hr IV ASDIRECTED [facility] Last Admin: 05/09/17 06:34 Dose: 150 mls/hr Sodium Chloride (Normal Saline) 1,000 mls @ 125 mls/hr IV ASDIRECTED [facility] Ketorolac Tromethamine (Toradol) 15 mg IVPUSH ONETIME ONE Stop: 05/08/17 21:59 Last Admin: 05/08/17 22:11 Dose: 15 mg Losartan Potassium (Cozaar) 50 mg PO ONETIME ONE Stop: 05/08/17 21:45 Last Admin: 05/08/17 22:29 Dose: 50 mg Ondansetron HCl (Zofran) 4 mg IVPUSH ONETIME ONE Stop: 05/08/17 22:44 Last Admin: 05/08/17 22:47 Dose: 4 mg - Exam Quality Assessment: DVT Prophylaxis General: Alert, Cooperative, Moderate Distress Lungs: Clear to Auscultation, Normal Respiratory Effort Cardiovascular: Regular Rate, No Murmurs, Irregular Rhythm. No: Tachycardia GI/Abdominal Exam: Soft, Non-Tender, No Organomegaly, No Distention Extremities: Non-Tender, No Pedal Edema Skin: Warm, Dry - Problem List Review Problem List Initiated/Reviewed/Updated: Yes - My Orders Last 24 Hours: My Active Orders 05/10/17 15:19 Warfarin [Coumadin] 2.5 mg PO ONETIME ONE 05/11/17 05:11 INR,PT,PROTHROMBIN TIME [COAG] AM - Plan Plan:: ASSESSMENT AND PLAN SEVERE BACK PAIN-likely secondary to muscle spasm, CT scan of the thoracic and lumbar spine today showed no evidence of new or subacute fractures. -Tylenol as needed for pain -Avoid narcotics if she is experienced significant delirium with use of these medications -Avoid use of muscle relaxants because of delirium -Physical therapy consult MAINTENANCE ISSUES -DVT prophylaxis; current therapy with warfarin should provide adequate DVT prophylaxis -GI prophylaxis; not indicated -Joel catheter; not indicated -Nutrition; regular diet -Nicotine dependence; not required CODE STATUS-DNR/DNI ADMISSION STATUS-patient will be admitted to inpatient status, expect at least a 2 night hospital stay for evaluation and management of problems as outlined above. At the time of this admission I do not reasonably expected evaluation and management of this problem will require more than a 96 hour hospital stay. DISPOSITION-anticipate discharge to group home or advanced assisted living PRIMARY CARE PROVIDER-
[2017-05-10] MEDS ORDERED: Warfarin 5 MG Tab (PTOM) PO ONE (16:00)
[2017-05-10] MEDS: MINERAL OIL OP SCH ×2 (16:04→20:02)
[2017-05-10] MEDS: PETROLATUM WHITE OP SCH ×2 (16:04→20:02)
[2017-05-10] MEDS ORDERED: Losartan 50 MG Tab PO ONE (17:57)
[2017-05-10] MEDS ORDERED: Lidocaine 5% 700 MG Patch TOP SCH (18:00)
[2017-05-10] MEDS: XYZAL 5 MG PO SCH (20:00)
[2017-05-10] MEDS: MELATONIN 3 MG PO SCH (20:01)
[2017-05-11] MEDS ORDERED: REMOVE LIDODERM TRDERM SCH (06:00)
[2017-05-11] MEDS: REFRESH LIQUIGEL EYEBOTH SCH ×2 (06:10→11:05)
[2017-05-11] MEDS: OMEPRAZOLE 20MG (PTOM) PO SCH (08:30)
[2017-05-11] MEDS: SIMETHICONE 80 MG PO SCH (08:31)
[2017-05-11] MEDS: CRANBERRY 500 MG PO SCH (08:32)
[2017-05-11] MEDS: LOSARTAN 50 MG PO SCH (08:32)
[2017-05-11] MEDS: DIVALPROEX SODIUM 250 MG PO SCH (08:33)
[2017-05-11] MEDS: Furosemide 20 MG Tab (PTOM) PO SCH (08:33)
[2017-05-11] MEDS: PREDNISONE 1 MG PO SCH (08:33)
[2017-05-11] MEDS: GLUCOSAMINE PO SCH (08:34)
[2017-05-11] MEDS: LUTEIN 20 MG PO SCH (08:34)
[2017-05-11] MEDS: SOTALOL 120 MG PO SCH (08:34)
[2017-05-11] MEDS: CHONDROITIN PO SCH (08:34)
[2017-05-11] MEDS: Levothyroxine 50 MCG Tab PO SCH (08:36)
[2017-05-11] MEDS: Cholestyramine/Sucrose Powder 4 GM Packet PO SCH (08:37)
[2017-05-11] MEDS: Calcium Carbonate 500 MG Tab.Chew PO SCH (08:39)
[2017-05-11] MEDS: Fluticasone Propionate Nasal Spray 16 GM Bottle NAS SCH (08:39)
[2017-05-11] MEDS: cycloSPORINE Ophth Drops U/D Box of 30 EYEBOTH SCH (08:41)
[2017-05-11] MEDS: Acetaminophen 325 MG Tab PO PRN ×2 (11:01→15:29)
--- NOTE | 2017-05-11 12:46 | PCM.DCSUM1 ---
Discharge Summary - Hospital Course Brief History: Ms. Huerta is an 86-year-old woman who was admitted to observation status with acute on chronic exacerbation of severe low back pain. - Discharge Data Discharge Date: 05/11/17 Discharge Disposition: Home, W Home Health Agency 06 Condition: Fair - Discharge Diagnosis/Problem(s) (1) Low back pain SNOMED Code(s): 519122404 ICD Code: M54.5 - LOW BACK PAIN Status: Acute Current Visit: Yes Qualifiers: Chronicity: acute Back pain laterality: midline Sciatica presence: without sciatica Qualified Code(s): M54.5 - Low back pain (2) Generalized anxiety disorder SNOMED Code(s): 66994831 ICD Code: F41.1 - GENERALIZED ANXIETY DISORDER Status: Chronic Current Visit: No (3) Chronic atrial fibrillation SNOMED Code(s): 989883635 ICD Code: I48.2 - CHRONIC ATRIAL FIBRILLATION Status: Chronic Current Visit: No - Patient Summary/Data Consults: Consultations 05/09/17 10:44 Consult to Physical Therapy [PT Evaluation and Treatment] [CONS] Routine Please Evaluate and Treat. PT Reason for Consult: Back pain This query below is only for informational purposes and is not editable. Admission Diagnosis/Problem: Back pain Hospital Course: Ms. Huerta is an 86-year-old woman who has had ongoing difficulty with back pain and has had previously documented thoracic spinal compression fractures. She was doing some low impact exercise and noted new onset of pain in her back that slowly became worse over the next 2-3 days. Pain was severe enough that she was unable to transition or ambulate so she came into the emergency department for further evaluation. X-ray of the back showed no evidence of acute spinal compression fracture. She was admitted to observation status for management of pain and physical therapy. Narcotics were not used for pain management because of her past history of intolerance to virtually all narcotics with increased confusion and agitation. Lidocaine patch was placed over the area which patient thought may have helped somewhat. She was also seen by physical therapy during the hospital stay. She will be discharged home, at her assisted living facility. Home care will be arranged with home physical therapy and occupational therapy. Family will be available to assist in transfers and ongoing care. CT scan was obtained on the day prior to discharge because of ongoing pain and showed no evidence of new spinal compression fractures. Activity will be as tolerated and she will resume her usual diet. - Patient Instructions Diet: Usual Diet as Tolerated Activity: As Tolerated Other/Special Instructions: Discharge to home with home care including home physical therapy and occupational therapy. Please schedule follow-up appointment with primary care provider within one week. Please schedule appointment in Coumadin clinic, for follow-up INR on May 13. - Discharge Plan Prescriptions/Med Rec: Lidocaine 5% [Lidoderm 5%] 700 mg TOP Q24H #300 patch Home Medications: Home Meds Furosemide [Lasix] 20 mg PO DAILY 12/19/13 [History] Levothyroxine [Synthroid] 50 mcg PO DAILY 12/19/13 [History] Losartan [Cozaar] 50 mg PO DAILY 12/19/13 [History] Lutein 20 mg PO DAILY 12/19/13 [History] Sotalol [Betapace] 120 mg PO BID 12/19/13 [History] cycloSPORINE [Restasis] 1 drop EYEBOTH BID 08/19/14 [History] Gluc HCl/Csa/Claire Hy/Hyalur Ac [Glucosamine Chondroitin] 1 tab PO BID 02/11/15 [ History] Digoxin [Lanoxin] 125 mcg PO DAILY 12/17/16 [History] Prednisone [IJD: Prednisone] 2 mg PO DAILY 12/17/16 [History] Calcium Carbonate 1 tab PO DAILY 01/02/17 [History] Levocetirizine Dihydrochloride [Xyzal] 5 mg PO BEDTIME 01/02/17 [History] Divalproex Sodium [Depakote] 250 mg PO BID #60 tablet. 01/04/17 [Rx] Melatonin 9 mg PO BEDTIME #90 tablet 01/04/17 [Rx] Carboxymethylcellulos/Glycerin [Refresh Optive] 1 drop EYEBOTH QID 05/08/17 [ History] Cholestyramine/Sucrose [Cholestyramine] 4 gm PO DAILY 05/08/17 [History] Cranberry 500 mg PO DAILY 05/08/17 [History] Fluticasone Propionate [Flonase] 16 gm NS DAILY 05/08/17 [History] Lactase [Lactaid] 1 tab PO BIDMEALS 05/08/17 [History] Mineral Oil/Petrolatum,White [Refresh P.M.] 1 applic OP BEDTIME 05/08/17 [ History] Omeprazole 20 mg PO DAILY 05/08/17 [History] cycloSPORINE [Restasis] 1 drop EYEBOTH BID 05/08/17 [History] Acetaminophen [Tylenol] 650 mg PO Q4H PRN #0 tablet 05/11/17 [Rx] Lidocaine 5% [Lidoderm 5%] 700 mg TOP Q24H #300 patch 05/11/17 [Rx] Warfarin [Coumadin] 5 mg PO DAILY #0 05/11/17 [Rx] Referrals: Elton Casillas MD [Primary Care Provider] - - Patient Data Vitals - Most Recent: Last Vital Signs Temp 97.5 F 05/11/17 11:46 Pulse 60 05/11/17 11:46 Resp 18 05/11/17 11:46 BP 155/70 H 05/11/17 11:46 Pulse Ox 95 05/11/17 11:46 Weight - Most Recent: 161 lb 6.054 oz I&O - Last 24 hours: Intake & Output 05/10/17 05/11/17 05/11/17 22:59 06:59 14:59 Intake Total 240 300 Output Total 225 Balance 240 -225 300 Lab Results - Last 24 hrs: Laboratory Results - last 24 hr 05/11/17 Range/Units 05:49 PT 36.1 H (9.5-12.0) sec INR 3.21 H (0.80-1.20) Med Orders - Current: Current Medications Acetaminophen (Tylenol) 650 mg PO Q4H PRN PRN Reason: Pain (Mild 1-3)/fever Last Admin: 05/11/17 11:01 Dose: 650 mg Calcium Carbonate/Glycine (Tums) 1,250 mg PO DAILY [facility] Last Admin: 05/11/17 08:39 Dose: 1,250 mg Cholestyramine Resin (Cholestyramine Packet) 4 gm PO DAILY [facility] Last Admin: 05/11/17 08:37 Dose: Not Given Cyclosporine (Restasis) 0 each EYEBOTH BID [facility] Last Admin: 05/11/17 08:41 Dose: 1 drop Digoxin (Lanoxin) 125 mcg PO DAILY@1300 [facility] Last Admin: 05/10/17 12:53 Dose: 125 mcg Divalproex Sodium (Depakote Er) 250 mg PO BID [facility] Last Admin: 05/11/17 08:33 Dose: 250 mg Fluticasone Propionate (Flonase) 0 gm QUE DAILY [facility] Last Admin: 05/11/17 08:39 Dose: Not Given Furosemide (Lasix) 20 mg PO DAILY [facility] Last Admin: 05/11/17 08:33 Dose: 20 mg Levothyroxine Sodium (Synthroid) 50 mcg PO ACBREAKFAST [facility] Last Admin: 05/11/17 08:36 Dose: 50 mcg Lidocaine (Lidoderm 5%) 700 mg TOP Q24H [facility] Last Admin: 05/10/17 18:17 Dose: 700 mg Losartan Potassium (Cozaar) 50 mg PO DAILY [facility] Last Admin: 05/11/17 08:32 Dose: 50 mg Melatonin (Melatonin) 9 mg PO BEDTIME [facility] Last Admin: 05/10/17 20:01 Dose: 9 mg Miscellaneous Information (Remove Patch) 1 ea TRDERM Q24H [facility] Last Admin: 05/11/17 08:28 Dose: 1 ea Cranberry [Cranberry (] 500 Mg (Ptom)) 500 mg PO DAILY [facility] Last Admin: 05/11/17 08:32 Dose: 500 mg Mineral Oil/Petrolatum,White [ Refresh P.M.] (Ptom) 0 applic OP BEDTIME [facility] Last Admin: 05/10/17 20:02 Dose: Not Given Refresh Liquigel * (Pom*) 0 each EYEBOTH QID [facility] Last Admin: 05/11/17 11:05 Dose: 1 each Ondansetron HCl (Zofran) 4 mg IV Q4H PRN PRN Reason: Nausea/Vomiting Omeprazole 20mg ( (Ptom)) 0 each PO ACBREAKFAST [facility] Last Admin: 05/11/17 08:30 Dose: 1 each Sotalol 120mg (Ptom) 0 each PO BID [facility] Last Admin: 05/11/17 08:34 Dose: 1 each Glucosamine/ (Chondroitin (Ptom)) 0 each PO BID [facility] Last Admin: 05/11/17 08:34 Dose: 1 each Xyzal 5mg (Ptom) 0 each PO BEDTIME [facility] Last Admin: 05/10/17 20:00 Dose: 1 each Lutein 20mg (Ptom) 0 each PO DAILY [facility] Last Admin: 05/11/17 08:34 Dose: 1 each Prednisone (Prednisone) 2 mg PO DAILY [facility] Last Admin: 05/11/17 08:33 Dose: 2 mg Simethicone (Simethicone) 80 mg PO BIDMEALS [facility] Last Admin: 05/11/17 08:31 Dose: 80 mg Sodium Chloride (Saline Flush) 10 ml FLUSH ASDIRECTED PRN PRN Reason: Keep Vein Open Last Admin: 05/08/17 22:29 Dose: 10 ml Discontinued Medications Artificial Tears (Natural Balance Tears) 1 ml EYEBOTH QID [facility] Last Admin: 05/09/17 05:36 Dose: Not Given Artificial Tears (Natural Balance Tears) 0 ml EYEBOTH QID [facility] Last Admin: 05/09/17 18:10 Dose: Not Given Clonidine HCl (Catapres) 0.1 mg PO ONETIME ONE Stop: 05/08/17 21:45 Last Admin: 05/08/17 22:13 Dose: 0.1 mg Hydromorphone HCl (Dilaudid) 0.5 mg IVPUSH ONETIME ONE Stop: 05/08/17 21:49 Last Admin: 05/08/17 22:13 Dose: 0.5 mg Sodium Chloride (Normal Saline) 1,000 mls @ 150 mls/hr IV ASDIRECTED [facility] Last Admin: 05/09/17 06:34 Dose: 150 mls/hr Sodium Chloride (Normal Saline) 1,000 mls @ 125 mls/hr IV ASDIRECTED [facility] Ketorolac Tromethamine (Toradol) 15 mg IVPUSH ONETIME ONE Stop: 05/08/17 21:59 Last Admin: 05/08/17 22:11 Dose: 15 mg Losartan Potassium (Cozaar) 50 mg PO ONETIME ONE Stop: 05/08/17 21:45 Last Admin: 05/08/17 22:29 Dose: 50 mg Losartan Potassium (Cozaar) 50 mg PO ONETIME ONE Stop: 05/10/17 17:58 Last Admin: 05/10/17 18:16 Dose: 50 mg Ondansetron HCl (Zofran) 4 mg IVPUSH ONETIME ONE Stop: 05/08/17 22:44 Last Admin: 05/08/17 22:47 Dose: 4 mg Warfarin Sodium (Coumadin) 7.5 mg PO MoFr@1300 [facility] Last Admin: 05/09/17 16:24 Dose: 7.5 mg Warfarin Sodium (Coumadin) 5 mg PO SuTuWeThSa@1300 [facility] Warfarin Sodium (Coumadin) 2.5 mg PO ONETIME ONE Stop: 05/10/17 16:01 Last Admin: 05/10/17 16:04 Dose: 2.5 mg *Q Meaningful Use (DIS) - VTE *Q VTE Criteria *Q: - Stroke *Q Stroke Criteria *Q: - AMI *Q AMI Criteria *Q:
[2017-05-11] MEDS: DIGOXIN 125 MCG PO SCH (13:07)
[2017-05-11 15:25] VITALS: BP 141/50
== END 2017-05-11 16:58 | disposition home health service (06) ==
LOC: JP.ED 21:33 → JP.MS 05-09 00:49
PROVIDERS: ADMIT Family Medicine; ATTEND Hospitalist
DX: M54.5 Low back pain (principal); F41.1 Generalized anxiety disorder; I48.2 Chronic atrial fibrillation; I10 Essential (primary) hypertension; E03.9 Hypothyroidism, unspecified; E87.1 Hypo-osmolality and hyponatremia; Z79.01 Long term (current) use of anticoagulants; Z79.899 Other long term (current) drug therapy; Z88.8 Allergy status to other drugs, medicaments and biological substances
CPT/HCPCS: 36415; 72100; 72128; 72131; 80048; 81001; 85027; 85610; 85651; 96361; 96374; 96375; 97162; 97530; 99285; A9270; G0378; J1170; J1885; J2405; J7040; J7050; 99217; 99224; 99225

== ENCOUNTER 2019-03-04 12:47 | Observation (INO) | payer MEDICARE, BC ==
--- NOTE | 2019-03-04 14:07 | EDM.PDOC ---
ED HPI GENERAL MEDICAL PROBLEM - General Chief Complaint: Cardiovascular Problem Stated Complaint: HEART RACING, CHEST TIGHTEN Time Seen by Provider: 03/04/19 14:00 Source of Information: Reports: Patient History Limitations: Reports: No Limitations - History of Present Illness INITIAL COMMENTS - FREE TEXT/NARRATIVE: 88 yo with hx of pacemaker, a-fib (on coumadin), anxiety, no known CAD presents with chest pain. She initially noted the discomfort in [facility] at approximately 9:15. Describes some heaviness in her chest with radiation to both arm. Accompanied by sensation of feeling warm and flushed. No dyspnea or exertion symptoms. Overall felt weak once she return to [facility] after [facility], chest pain still present, so daughter brought her to the ER. She is now CP free. She has otherwise been feeling well. No has no fevers, no cough, no pleuritic CP, no LE swelling or pain. She has a history of prior ED visit for chest pain as well as stress tests which have all been unremarkable. - Related Data Allergies Allergy/AdvReac Type Severity Reaction Status Date / Time allopurinol Allergy Cannot Verified 05/20/18 08:58 Remember amlodipine besylate Allergy Swelling Verified 05/20/18 08:58 [From Norvasc] cilostazol [From Pletal] Allergy Headache Verified 05/20/18 08:58 iodine Allergy Hives Verified 05/20/18 08:58 niacin Allergy Hives Verified 05/20/18 08:58 paroxetine HCl [From Paxil] Allergy Other Verified 05/20/18 08:58 acetaminophen AdvReac Hallucinati Verified 05/20/18 08:58 [From Darvocet-N] ons alendronate sodium AdvReac Stomach Verified 05/20/18 08:58 [From Fosamax] Upset aspirin AdvReac Stomach Verified 05/20/18 08:58 Ache codeine AdvReac Stomach Verified 05/20/18 08:58 Upset cyclobenzaprine HCl AdvReac Syncope Verified 05/20/18 08:58 [From Flexeril] lorazepam [From Ativan] AdvReac Tremors Verified 05/20/18 08:58 propoxyphene napsylate AdvReac Hallucinati Verified 05/20/18 08:58 [From Darvocet-N] ons raloxifene HCl [From Evista] AdvReac Hallucinati Verified 05/20/18 08:58 ons Home Meds: Home Meds Furosemide [Lasix] 20 mg PO DAILY 12/19/13 [History] Levothyroxine [Synthroid] 50 mcg PO DAILY 12/19/13 [History] Losartan [Cozaar] 50 mg PO DAILY 12/19/13 [History] Sotalol [Betapace] 160 mg PO BID 12/19/13 [History] Gluc HCl/Csa/Claire Hy/Hyalur Ac [Glucosamine Chondroitin] 1 tab PO BID 02/11/15 [ History] Digoxin [Lanoxin] 125 mcg PO DAILY 12/17/16 [History] Prednisone [IJD: Prednisone] 2 mg PO DAILY 12/17/16 [History] Calcium Carbonate 1 tab PO DAILY 01/02/17 [History] Levocetirizine Dihydrochloride [Xyzal] 5 mg PO BEDTIME 01/02/17 [History] Divalproex Sodium [Depakote] 250 mg PO BID #60 tablet. 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: , 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 Musculoskeletal History: Reports: Arthritis, Back Pain, Chronic, Fracture, Osteoporosis Neurological History: Reports: Headaches, Chronic, Other (See Below) Other Neuro History: acoustic neuroma-brain, benign Psychiatric History: Reports: Anxiety, Mood Swings Endocrine/Metabolic History: Reports: Hypothyroidism, Osteoporosis Hematologic History: Reports: Anticoagulation Therapy Oncologic (Cancer) History: Reports: Other (See Below) Other Oncologic History: skin CA Dermatologic History: Reports: Eczema - Infectious Disease History Infectious Disease History: Reports: Chicken Pox, Measles, Mumps - Past Surgical History HEENT Surgical History: Reports: Adenoidectomy, Cataract Surgery, Tonsillectomy Cardiovascular Surgical History: Reports: Pacer Endocrine Surgical History: Reports: None Neurological Surgical History: Reports: Thoracic Spine, Other (See Below) Other Neurological Surgeries/Procedures: brain surgery for acoustic neuroma- brain Musculoskeletal Surgical History: Reports: Other (See Below) Other Musculoskeletal Surgeries/Procedures:: femur repair Social & Family History - Family History Family Medical History: Noncontributory Cardiac: Reports: Hypertension Other Cardiac Family History: Sister had stroke. Musculoskeletal: Reports: Arthritis, Osteoporosis Neurological: Reports: CVA Psychiatric: Reports: Anxiety Oncologic: Reports: Leukemia - Tobacco Use Smoking Status *Q: Never Smoker - Caffeine Use Caffeine Use: Reports: Coffee - Recreational Drug Use Recreational Drug Use: No ED ROS GENERAL - Review of Systems Review Of Systems: See Below Constitutional: Reports: No Symptoms HEENT: Reports: No Symptoms Respiratory: Denies: Shortness of Breath, Pleuritic Chest Pain, Cough Cardiovascular: Reports: Chest Pain Endocrine: Reports: No Symptoms GI/Abdominal: Reports: No Symptoms : Reports: No Symptoms Musculoskeletal: Reports: No Symptoms Skin: Reports: No Symptoms Neurological: Reports: No Symptoms Psychiatric: Reports: No Symptoms Hematologic/Lymphatic: Reports: No Symptoms Immunologic: Reports: No Symptoms ED EXAM, GENERAL - Physical Exam Exam: See Below Exam Limited By: No Limitations General Appearance: Alert, No Apparent Distress Ears: Normal External Exam Nose: Normal Inspection Throat/Mouth: Normal Inspection Head: Atraumatic, Normocephalic Respiratory/Chest: No Respiratory Distress, Lungs Clear, Normal Breath Sounds, Chest Non-Tender Cardiovascular: Regular Rate, Rhythm GI/Abdominal: Normal Bowel Sounds, Soft, Non-Tender Extremities: Normal Inspection, Niurka's Sign. No: Pedal Edema Neurological: Alert, Oriented Psychiatric: Normal Affect, Normal Mood Skin Exam: Warm, Dry EKG INTERPRETATION EKG Date: 03/04/19 Rhythm: Other (a paced) QRS: Wide ST-T: Normal Course - Vital Signs Last Recorded V/S: Last Vital Signs Temp 36.3 C 03/04/19 13:21 Pulse 59 L 03/04/19 15:45 Resp 12 03/04/19 15:45 BP 230/100 H 03/04/19 17:21 Pulse Ox 98 03/04/19 15:45 - Orders/Labs/Meds Orders: Active Orders 24 hr Category Date Time Status EKG Documentation Completion [RC] ASDIRECTED Care 03/04/19 13:03 Active Aspirin Med 03/04/19 17:26 Once 324 mg PO ONETIME ONE EKG 12 Lead [EK] Routine Ther 03/04/19 13:03 Ordered Labs: Laboratory Tests 03/04/19 03/04/19 03/04/19 Range/Units 13:03 13:35 13:55 WBC 7.9 (4.5-11.0) K/uL RBC 4.70 (3.30-5.50) M/uL Hgb 14.0 (12.0-15.0) g/dL Hct 41.7 (36.0-48.0) % MCV 89 (80-98) fL MCH 30 (27-31) pg MCHC 34 (32-36) % Plt Count 200 (150-400) K/uL PT (9.5-12.0) sec INR (0.80-1.20) Sodium 131 L (140-148) mmol/L Potassium 3.9 (3.6-5.2) mmol/L Chloride 95 L (100-108) mmol/L Carbon Dioxide 26 (21-32) mmol/L Anion Gap 13.9 (5.0-14.0) mmol/L BUN 18 (7-18) mg/dL Creatinine 1.0 (0.6-1.0) mg/dL Est Cr Clr Drug Dosing TNP Estimated GFR (MDRD) 52 L (>60) Glucose 177 H (74-106) mg/dL Calcium 8.3 L (8.5-10.1) mg/dL Total Bilirubin 0.5 (0.2-1.0) mg/dL AST 21 (15-37) U/L ALT 16 (12-78) U/L Alkaline Phosphatase 43 L (46-116) U/L Troponin I 0.039 (0.000-0.056) ng/mL Total Protein 7.1 (6.4-8.2) g/dL Albumin 3.4 (3.4-5.0) g/dL Globulin 3.7 H (2.3-3.5) g/dL Albumin/Globulin Ratio 0.9 L (1.2-2.2) Digoxin 1.81 (0.90-2.00) ng/mL 03/04/19 03/04/19 Range/Units 13:57 15:29 WBC (4.5-11.0) K/uL RBC (3.30-5.50) M/uL Hgb (12.0-15.0) g/dL Hct (36.0-48.0) % MCV (80-98) fL MCH (27-31) pg MCHC (32-36) % Plt Count (150-400) K/uL PT 20.5 H (9.5-12.0) sec INR 1.97 H (0.80-1.20) Sodium (140-148) mmol/L Potassium (3.6-5.2) mmol/L Chloride (100-108) mmol/L Carbon Dioxide (21-32) mmol/L Anion Gap (5.0-14.0) mmol/L BUN (7-18) mg/dL Creatinine (0.6-1.0) mg/dL Est Cr Clr Drug Dosing Estimated GFR (MDRD) (>60) Glucose (74-106) mg/dL Calcium (8.5-10.1) mg/dL Total Bilirubin (0.2-1.0) mg/dL AST (15-37) U/L ALT (12-78) U/L Alkaline Phosphatase (46-116) U/L Troponin I 0.083 H* (0.000-0.056) ng/mL Total Protein (6.4-8.2) g/dL Albumin (3.4-5.0) g/dL Globulin (2.3-3.5) g/dL Albumin/Globulin Ratio (1.2-2.2) Digoxin (0.90-2.00) ng/mL - Re-Assessments/Exams Free Text/Narrative Re-Assessment/Exam: 88 yo presents with concerns of chest tightness, feeling "flushed" 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 03/04/19 14:55 Free Text/Narrative Re-Assessment/Exam: Initial troponin negative, however delta trop 0.08 Remains chest pain free. Discussed extensively with the patient and her daughter that she meets NSTEMI criteria and standard of care is for transfer to cardiac center capable of performing catheterization. However after much thought both patient and daughter have decided she would not like any intervention performed. We discussed there may still be benefit from consultation with a spinner continuous however they have strong preference to remain here in [place] given the patient overall goals of care. The patient recognizes this may result in if further cardiac decompensation occurs and she has the option if she changes her mind to request transfer. She is already DNR. I overall agree this decision seems align with her overall goals of care, particularly in light of this modest troponin elevation. I have administered ASA but holding off on heparin gtt. Hospitalist, Dr Ramos, has graciously agreed to admit for medical optimization. 03/04/19 17:25 Departure - Departure Time of Disposition: 17:15 Disposition: Admitted As Inpatient 65 Clinical Impression: NSTEMI (non-ST elevated myocardial infarction) Referrals: Elton Casillas MD [Primary Care Provider] - Forms: ED Department Discharge - My Orders Last 24 Hours: My Active Orders 03/04/19 13:03 EKG Documentation Completion [RC] ASDIRECTED EKG 12 Lead [EK] Routine 03/04/19 17:26 Aspirin 324 mg PO ONETIME ONE - Assessment/Plan Last 24 Hours: My Active Orders 03/04/19 13:03 EKG Documentation Completion [RC] ASDIRECTED EKG 12 Lead [EK] Routine 03/04/19 17:26 Aspirin 324 mg PO ONETIME ONE
[2019-03-04] MEDS: Aspirin 81 MG Tab.Chew PO ONE ×2 (17:33→17:51)
--- NOTE | 2019-03-04 18:06 | PCM.HP.2 ---
H&P History of Present Illness - General Date of Service: 03/04/19 Admit Problem/Dx: Admission Diagnosis/Problem Admission Diagnosis/Problem IA, Myocardial infarction Source of Information: Patient, Family, Provider, RN Notes Reviewed History Limitations: Reports: No Limitations - History of Present Illness Initial Comments - Free Text/Narative: Ms. Huerta is an 88-year-old woman who was admitted through the emergency department to observation status for further evaluation of non-ST segment myocardial infarction. Transfer to a tertiary care center was recommended to the patient and family, patient refuses as she does not want further aggressive interventions. She is agreeable to medical management, but nothing further even if symptoms or findings worsen. While at alevism this morning experienced 15-20 minutes of central chest pressure that was moderately severe and radiated to both arms. During this period time felt as though her heart rate was rapid. Daughter did check her pulse and noted it to be elevated at 120. Ms. Huerta does have a known history of paroxysmal atrial fibrillation and is on long-term term oral anticoagulation with warfarin. Pain has not recurred during the day, she presented to the emergency department for further evaluation. EKG showed no acute ST segment changes, initial troponin level was within normal range. Follow -up troponin level was found to be elevated at 0.083. - Related Data Allergies/Adverse Reactions: Allergies Allergy/AdvReac Type Severity Reaction Status Date / Time allopurinol Allergy Cannot Verified 05/20/18 08:58 Remember amlodipine besylate Allergy Swelling Verified 05/20/18 08:58 [From Norvasc] cilostazol [From Pletal] Allergy Headache Verified 05/20/18 08:58 iodine Allergy Hives Verified 05/20/18 08:58 niacin Allergy Hives Verified 05/20/18 08:58 paroxetine HCl [From Paxil] Allergy Other Verified 05/20/18 08:58 acetaminophen AdvReac Hallucinati Verified 05/20/18 08:58 [From Darvocet-N] ons alendronate sodium AdvReac Stomach Verified 05/20/18 08:58 [From Fosamax] Upset aspirin AdvReac Stomach Verified 05/20/18 08:58 Ache codeine AdvReac Stomach Verified 05/20/18 08:58 Upset cyclobenzaprine HCl AdvReac Syncope Verified 05/20/18 08:58 [From Flexeril] lorazepam [From Ativan] AdvReac Tremors Verified 05/20/18 08:58 propoxyphene napsylate AdvReac Hallucinati Verified 05/20/18 08:58 [From Darvocet-N] ons raloxifene HCl [From Evista] AdvReac Hallucinati Verified 05/20/18 08:58 ons Home Medications: Home Meds Furosemide [Lasix] 20 mg PO DAILY 12/19/13 [History] Levothyroxine [Synthroid] 50 mcg PO DAILY 12/19/13 [History] Losartan [Cozaar] 50 mg PO DAILY 12/19/13 [History] Sotalol [Betapace] 160 mg PO BID 12/19/13 [History] Gluc HCl/Csa/Claire Hy/Hyalur Ac [Glucosamine Chondroitin] 1 tab PO BID 02/11/15 [ History] Digoxin [Lanoxin] 125 mcg PO DAILY 12/17/16 [History] Prednisone [IJD: Prednisone] 2 mg PO DAILY 12/17/16 [History] Calcium Carbonate 1 tab PO DAILY 01/02/17 [History] Levocetirizine Dihydrochloride [Xyzal] 5 mg PO BEDTIME 01/02/17 [History] Divalproex Sodium [Depakote] 250 mg PO BID #60 tablet.dr 01/04/17 [Rx] Lactase [Lactaid] 1 tab PO BIDMEALS 05/08/17 [History] Omeprazole 20 mg PO DAILY 05/08/17 [History] Acetaminophen [Tylenol] 650 mg PO Q4H PRN #0 tablet 05/11/17 [Rx] Warfarin [Coumadin] 5 mg PO DAILY #0 05/11/17 [Rx] *Eye Drops Blood Serum 1 drop TOP QID 05/20/18 [History] Past Medical History HEENT History: Reports: Allergic Rhinitis, Cataract, Hard of Hearing, Impaired Vision, Sinusitis Cardiovascular History: Reports: Afib, Arrhythmia, Blood Clots/VTE/DVT, High Cholesterol, Hypertension, Pacemaker Gastrointestinal History: Reports: Gastritis, GERD, Helicobacter Pylori 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: , 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 Musculoskeletal History: Reports: Arthritis, Back Pain, Chronic, Fracture, Osteoporosis Neurological History: Reports: Headaches, Chronic, Other (See Below) Other Neuro History: acoustic neuroma-brain, benign Psychiatric History: Reports: Anxiety, Mood Swings Endocrine/Metabolic History: Reports: Hypothyroidism, Osteoporosis Hematologic History: Reports: Anticoagulation Therapy Oncologic (Cancer) History: Reports: Other (See Below) Other Oncologic History: skin CA Dermatologic History: Reports: Eczema - Infectious Disease History Infectious Disease History: Reports: Chicken Pox, Measles, Mumps - Past Surgical History HEENT Surgical History: Reports: Adenoidectomy, Cataract Surgery, Tonsillectomy Cardiovascular Surgical History: Reports: Pacer Endocrine Surgical History: Reports: None Neurological Surgical History: Reports: Thoracic Spine, Other (See Below) Other Neurological Surgeries/Procedures: brain surgery for acoustic neuroma- brain Musculoskeletal Surgical History: Reports: Other (See Below) Other Musculoskeletal Surgeries/Procedures:: femur repair Social & Family History - Family History Family Medical History: Noncontributory Cardiac: Reports: Hypertension Other Cardiac Family History: Sister had stroke. Musculoskeletal: Reports: Arthritis, Osteoporosis Neurological: Reports: CVA Psychiatric: Reports: Anxiety Oncologic: Reports: Leukemia - Tobacco Use Smoking Status *Q: Never Smoker - Caffeine Use Caffeine Use: Reports: Coffee - Recreational Drug Use Recreational Drug Use: No H&P Review of Systems - Review of Systems: Review Of Systems: See Below General: Reports: No Symptoms HEENT: Reports: No Symptoms Pulmonary: Reports: No Symptoms Cardiovascular: Reports: Chest Pain, Palpitations, Dyspnea on Exertion. Denies : Orthopnea, PND, Edema, Lightheadedness, Syncope Gastrointestinal: Reports: No Symptoms Genitourinary: Reports: No Symptoms Musculoskeletal: Reports: No Symptoms Skin: Reports: No Symptoms Psychiatric: Reports: No Symptoms Neurological: Reports: No Symptoms Hematologic/Lymphatic: Reports: No Symptoms Immunologic: Reports: No Symptoms Exam - Exam Exam: See Below - Vital Signs Vital Signs: Last Vital Signs Temp 97.3 F 03/04/19 13:21 Pulse 59 L 03/04/19 16:28 Resp 12 03/04/19 15:45 BP 230/100 H 03/04/19 17:21 Pulse Ox 98 03/04/19 15:45 Weight: 130 lb - Exam Quality Assessment: DVT Prophylaxis General: Alert, Oriented, Cooperative HEENT: Conjunctiva Clear, Hearing Intact, Mucosa Moist & [place], Normal Nasal Septum, Posterior Pharynx Clear, Pupils Equal Neck: Supple, Trachea Midline, +2 Carotid Pulse wo Bruit Lungs: Clear to Auscultation, Normal Respiratory Effort Cardiovascular: Regular Rate, Regular Rhythm, Normal S1, Normal S2, Systolic Murmur. No: Diastolic Murmur GI/Abdominal Exam: Soft, Non-Tender, No Organomegaly, No Distention Back Exam: Normal Inspection, Full Range of Motion Extremities: Non-Tender, No Pedal Edema Skin: Warm, Dry, Intact Neurological: Cranial Nerves Intact, Strength Equal Bilateral, Normal Speech, Normal Tone, Sensation Intact. No: Focal Deficit Neuro Extensive - Mental Status: Alert, Oriented x3, Normal Mood/Affect, Normal Cognition, Memory Intact - Patient Data Lab Results Last 24 hrs: Laboratory Results - last 24 hr 03/04/19 03/04/19 03/04/19 Range/Units 13:03 13:35 13:55 WBC 7.9 (4.5-11.0) K/uL RBC 4.70 (3.30-5.50) M/uL Hgb 14.0 (12.0-15.0) g/dL Hct 41.7 (36.0-48.0) % MCV 89 (80-98) fL MCH 30 (27-31) pg MCHC 34 (32-36) % Plt Count 200 (150-400) K/uL PT (9.5-12.0) sec INR (0.80-1.20) Sodium 131 L (140-148) mmol/L Potassium 3.9 (3.6-5.2) mmol/L Chloride 95 L (100-108) mmol/L Carbon Dioxide 26 (21-32) mmol/L Anion Gap 13.9 (5.0-14.0) mmol/L BUN 18 (7-18) mg/dL Creatinine 1.0 (0.6-1.0) mg/dL Est Cr Clr Drug Dosing TNP Estimated GFR (MDRD) 52 L (>60) Glucose 177 H (74-106) mg/dL Calcium 8.3 L (8.5-10.1) mg/dL Total Bilirubin 0.5 (0.2-1.0) mg/dL AST 21 (15-37) U/L ALT 16 (12-78) U/L Alkaline Phosphatase 43 L (46-116) U/L Troponin I 0.039 (0.000-0.056) ng/mL Total Protein 7.1 (6.4-8.2) g/dL Albumin 3.4 (3.4-5.0) g/dL Globulin 3.7 H (2.3-3.5) g/dL Albumin/Globulin Ratio 0.9 L (1.2-2.2) Digoxin 1.81 (0.90-2.00) ng/mL 03/04/19 03/04/19 Range/Units 13:57 15:29 WBC (4.5-11.0) K/uL RBC (3.30-5.50) M/uL Hgb (12.0-15.0) g/dL Hct (36.0-48.0) % MCV (80-98) fL MCH (27-31) pg MCHC (32-36) % Plt Count (150-400) K/uL PT 20.5 H (9.5-12.0) sec INR 1.97 H (0.80-1.20) Sodium (140-148) mmol/L Potassium (3.6-5.2) mmol/L Chloride (100-108) mmol/L Carbon Dioxide (21-32) mmol/L Anion Gap (5.0-14.0) mmol/L BUN (7-18) mg/dL Creatinine (0.6-1.0) mg/dL Est Cr Clr Drug Dosing Estimated GFR (MDRD) (>60) Glucose (74-106) mg/dL Calcium (8.5-10.1) mg/dL Total Bilirubin (0.2-1.0) mg/dL AST (15-37) U/L ALT (12-78) U/L Alkaline Phosphatase (46-116) U/L Troponin I 0.083 H* (0.000-0.056) ng/mL Total Protein (6.4-8.2) g/dL Albumin (3.4-5.0) g/dL Globulin (2.3-3.5) g/dL Albumin/Globulin Ratio (1.2-2.2) Digoxin (0.90-2.00) ng/mL Result Diagrams: 03/04/19 13:03 03/04/19 13:35 *Q Meaningful Use (ADM) - VTE *Q VTE Pharmacological Contraindications *Q: High INR Value - VTE Risk Assess *Q Each Risk Factor Represents 1 Point: Acute myocardial infarction Total Score 1 Point Risk Factors: 1 Each Risk Factor Represents 2 Points: None Total Score 2 Point Risk Factors: 0 Each Risk Factor Represents 3 Points: Age 75 Years or Greater Total Score 3 Point Risk Factors: 3 Each Risk Factor Represents 5 Points: None Total Score 5 Point Risk Factors: 0 Venous Thromboembolism Risk Factor Score *Q: 4 Problem List Initiated/Reviewed/Updated: Yes Orders Last 24hrs: Active Orders 24 hr Category Date Time Status Patient Status Manage Transfer [TRANSFER] Routine ADT 03/04/19 17:45 Ordered EKG Documentation Completion [RC] ASDIRECTED Care 03/04/19 13:03 Active Resuscitation Status Routine Resus Stat 03/04/19 17:49 Ordered EKG 12 Lead [EK] Routine Ther 03/04/19 13:03 Ordered Assessment/Plan Comment:: ASSESSMENT AND PLAN ACUTE NON-ST SEGMENT MYOCARDIAL INFARCTION-slight elevation in followup troponin level. Currently no symptoms of chest pain or pressure. No prior history of coronary artery disease or myocardial infarction. She is intolerant of aspirin therapy. She does not want aggressive interventions would like medical management only. -Not a good candidate for beta beba therapy because of heart rate of 50s to low 60s. -Intolerant of aspirin -Serial troponin levels -Initiate IV heparin if she has recurrent symptoms of chest pain -Imdur 30 mg by mouth daily, starting tonight HYPERTENSION-blood pressure significantly elevated in the emergency department -Continue usual outpatient medications -Hydralazine 5 mg IV for systolic pressure greater than 180 and/or diastolic pressure greater than 106. PAROXYSMAL ATRIAL FIBRILLATION-is reviewed intermittent episodes of atrial fibrillation. Heart rate was noted to be elevated this morning, suspect underlying atrial fibrillation as a precipitating factor in the episode of chest pain. -Continue outpatient medical therapy, including sotalol, digoxin, and warfarin -Recheck INR in a.m. PALLIATIVE CARE-she would like medical management only, does not want to consider aggressive interventions or evaluation. MAINTENANCE ISSUES -DVT prophylaxis; current therapy with warfarin should provide adequate DVT prophylaxis -GI prophylaxis; continue outpatient PPI therapy -Joel catheter; not indicated -Nutrition; 2 g sodium diet -Nicotine dependence; not required CODE STATUS-DNR/DNI ADMISSION STATUS-this patient will be admitted to observation status, expect no more than a one night hospital stay for evaluation and management of problems as outlined above. DISPOSITION-anticipate discharge to home after the hospital stay. PRIMARY CARE PROVIDER-Dr. Casillas - Mortality Measure Prognosis:: Good
[2019-03-04] MEDS ORDERED: Morphine 2 MG/ML Syringe IVPUSH PRN (18:13)
[2019-03-04] MEDS ORDERED: Nitroglycerin 0.4 MG Tab.SL SL PRN (18:13)
[2019-03-04] MEDS ORDERED: Polyethylene Glycol 3350 Powder 17 GM Packet PO PRN (18:13)
[2019-03-04] MEDS ORDERED: Sodium Chloride 0.9% 10 ML Syringe FLUSH PRN (18:13)
[2019-03-04] MEDS: Isosorbide Mononitrate 30 MG Tab.ER PO SCH (18:33)
[2019-03-04] MEDS: hydrALAZINE 20 MG/ML SDV IVPUSH PRN (18:35)
[2019-03-04] MEDS: Acetaminophen 325 MG Tab PO PRN (20:31)
[2019-03-04] MEDS ORDERED: Divalproex Sodium Delayed-Release 250 MG Tab.CR PO SCH (21:00)
[2019-03-04] MEDS ORDERED: Non-Formulary Medication 1 Each (Levocetirizine Dihydrochloride [Xyzal] 5 MG) PO SCH (21:00)
[2019-03-04] MEDS ORDERED: Sotalol 80 MG Tab PO SCH (21:00)
[2019-03-04] MEDS: DIVALPROEX SODIUM 250 MG PO SCH (21:13)
[2019-03-04] MEDS ORDERED: SOTALOL PO SCH (21:15)
[2019-03-05] MEDS: Acetaminophen 325 MG Tab PO PRN ×4 (00:01→20:52)
[2019-03-05] MEDS: hydrALAZINE 20 MG/ML SDV IVPUSH PRN ×3 (02:18→22:46)
[2019-03-05] MEDS: Ondansetron 4 MG/2 ML SDV IV PRN ×4 (04:36→20:52)
[2019-03-05] MEDS ORDERED: Pantoprazole 40 MG Tab.CR PO SCH ×2 (07:30→09:00)
[2019-03-05] MEDS ORDERED: LEVOTHYROXINE 50 MCG PO SCH (09:00)
[2019-03-05] MEDS ORDERED: Furosemide 40 MG Tab PO SCH (09:00)
[2019-03-05] MEDS: LEVOTHYROXINE 50 MCG PO SCH (11:07)
[2019-03-05] MEDS: LACTASE PO SCH ×2 (11:11→16:54)
[2019-03-05] MEDS: LOSARTAN 50 MG PO SCH (11:12)
[2019-03-05] MEDS: Isosorbide Mononitrate 30 MG Tab.ER PO SCH (11:13)
[2019-03-05] MEDS: Furosemide 20 MG Tab (PTOM) PO SCH (11:13)
[2019-03-05] MEDS: DIVALPROEX SODIUM 250 MG PO SCH ×2 (11:13→20:40)
[2019-03-05] MEDS: SOTALOL PO SCH ×2 (11:14→20:38)
[2019-03-05] MEDS: PREDNISONE 1 MG PO SCH (11:14)
[2019-03-05] MEDS: OMEPRAZOLE 40MG CAP (PTOM) PO SCH (11:15)
--- NOTE | 2019-03-05 11:36 | PCM.PN ---
- General Info Date of Service: 03/05/19 Subjective Update: There were no acute events overnight. Troponin level has normalized this morning. No complaints of chest pain. She has had an additional run of atrial fibrillation with a heart rate in the 120s. She was asymptomatic and sleeping at the time. She does complain of sinus pressure, dizziness and some nausea. She feels unsteady on her feet. Functional Status: Reports: Pain Controlled, Tolerating Diet - Review of Systems General: Denies: Fever HEENT: Reports: Headaches, Sinus Congestion Cardiovascular: Denies: Chest Pain - Patient Data Vitals - Most Recent: Last Vital Signs Temp 36.6 C 03/05/19 08:00 Pulse 60 03/05/19 05:33 Resp 16 03/05/19 08:00 BP 139/59 L 03/05/19 11:13 Pulse Ox 95 03/05/19 08:00 Weight - Most Recent: 58.9 kg I&O - Last 24 Hours: Intake & Output 03/04/19 03/05/19 03/05/19 22:59 06:59 14:59 Output Total 1600 900 Balance -1600 -900 Lab Results Last 24 Hours: Laboratory Results - last 24 hr 03/04/19 03/04/19 03/04/19 Range/Units 13:03 13:35 13:55 WBC 7.9 (4.5-11.0) K/uL RBC 4.70 (3.30-5.50) M/uL Hgb 14.0 (12.0-15.0) g/dL Hct 41.7 (36.0-48.0) % MCV 89 (80-98) fL MCH 30 (27-31) pg MCHC 34 (32-36) % Plt Count 200 (150-400) K/uL PT (9.5-12.0) sec INR (0.80-1.20) Sodium 131 L (140-148) mmol/L Potassium 3.9 (3.6-5.2) mmol/L Chloride 95 L (100-108) mmol/L Carbon Dioxide 26 (21-32) mmol/L Anion Gap 13.9 (5.0-14.0) mmol/L BUN 18 (7-18) mg/dL Creatinine 1.0 (0.6-1.0) mg/dL Est Cr Clr Drug Dosing TNP Estimated GFR (MDRD) 52 L (>60) Glucose 177 H (74-106) mg/dL Calcium 8.3 L (8.5-10.1) mg/dL Total Bilirubin 0.5 (0.2-1.0) mg/dL AST 21 (15-37) U/L ALT 16 (12-78) U/L Alkaline Phosphatase 43 L (46-116) U/L Troponin I 0.039 (0.000-0.056) ng/mL Total Protein 7.1 (6.4-8.2) g/dL Albumin 3.4 (3.4-5.0) g/dL Globulin 3.7 H (2.3-3.5) g/dL Albumin/Globulin Ratio 0.9 L (1.2-2.2) Digoxin 1.81 (0.90-2.00) ng/mL 03/04/19 03/04/19 03/04/19 Range/Units 13:57 15:29 23:30 WBC (4.5-11.0) K/uL RBC (3.30-5.50) M/uL Hgb (12.0-15.0) g/dL Hct (36.0-48.0) % MCV (80-98) fL MCH (27-31) pg MCHC (32-36) % Plt Count (150-400) K/uL PT 20.5 H (9.5-12.0) sec INR 1.97 H (0.80-1.20) Sodium (140-148) mmol/L Potassium (3.6-5.2) mmol/L Chloride (100-108) mmol/L Carbon Dioxide (21-32) mmol/L Anion Gap (5.0-14.0) mmol/L BUN (7-18) mg/dL Creatinine (0.6-1.0) mg/dL Est Cr Clr Drug Dosing Estimated GFR (MDRD) (>60) Glucose (74-106) mg/dL Calcium (8.5-10.1) mg/dL Total Bilirubin (0.2-1.0) mg/dL AST (15-37) U/L ALT (12-78) U/L Alkaline Phosphatase (46-116) U/L Troponin I 0.083 H* 0.123 H* (0.000-0.056) ng/mL Total Protein (6.4-8.2) g/dL Albumin (3.4-5.0) g/dL Globulin (2.3-3.5) g/dL Albumin/Globulin Ratio (1.2-2.2) Digoxin (0.90-2.00) ng/mL 03/05/19 03/05/19 03/05/19 Range/Units 04:20 04:20 04:20 WBC (4.5-11.0) K/uL RBC (3.30-5.50) M/uL Hgb (12.0-15.0) g/dL Hct (36.0-48.0) % MCV (80-98) fL MCH (27-31) pg MCHC (32-36) % Plt Count (150-400) K/uL PT 18.2 H (9.5-12.0) sec INR 1.74 H (0.80-1.20) Sodium (140-148) mmol/L Potassium (3.6-5.2) mmol/L Chloride (100-108) mmol/L Carbon Dioxide (21-32) mmol/L Anion Gap (5.0-14.0) mmol/L BUN (7-18) mg/dL Creatinine (0.6-1.0) mg/dL Est Cr Clr Drug Dosing Estimated GFR (MDRD) (>60) Glucose (74-106) mg/dL Calcium (8.5-10.1) mg/dL Total Bilirubin (0.2-1.0) mg/dL AST (15-37) U/L ALT (12-78) U/L Alkaline Phosphatase (46-116) U/L Troponin I 0.045 (0.000-0.056) ng/mL Total Protein (6.4-8.2) g/dL Albumin (3.4-5.0) g/dL Globulin (2.3-3.5) g/dL Albumin/Globulin Ratio (1.2-2.2) Digoxin 1.06 (0.90-2.00) ng/mL Med Orders - Current: Current Medications Acetaminophen (Tylenol) 650 mg PO Q4H PRN PRN Reason: Pain (Mild 1-3)/fever Last Admin: 03/05/19 11:11 Dose: 650 mg Cetirizine HCl (Zyrtec) 10 mg PO BEDTIME ON LICENSE OF [facility] Digoxin (Lanoxin) 125 mcg PO DAILY@1300 ON [facility] OF [facility] Divalproex Sodium (Depakote Er) 250 mg PO BID ON LICENSE OF [facility] Last Admin: 03/05/19 11:13 Dose: 250 mg Fluticasone Propionate (Flonase) 1 gm NASBOTH DAILY ON LICENSE OF [facility] Furosemide (Lasix) 20 mg PO DAILY ON [facility] Last Admin: 03/05/19 11:13 Dose: 20 mg Guaifenesin (Mucinex) 1,200 mg PO BID ON [facility] Hydralazine HCl (Apresoline) 5 mg IVPUSH Q4H PRN PRN Reason: Hypertension Last Admin: 03/05/19 02:18 Dose: 5 mg Isosorbide Mononitrate (Imdur) 30 mg PO DAILY ON [facility] Last Admin: 03/05/19 11:13 Dose: 30 mg Levothyroxine Sodium (Synthroid) 50 mcg PO ACBREAKFAST ON [facility] OF [facility] Last Admin: 03/05/19 11:07 Dose: 50 mcg Losartan Potassium (Cozaar) 50 mg PO DAILY ON [facility] Last Admin: 03/05/19 11:12 Dose: 50 mg Morphine Sulfate (Morphine) 2 mg IVPUSH Q2H PRN PRN Reason: Pain (severe 7-10) Last Admin: 03/05/19 00:03 Dose: 2 mg Nitroglycerin (Nitrostat) 0.4 mg SL Q5M PRN PRN Reason: Chest Pain Stop: 03/05/19 17:53 Lactase [Lactaid] 1 tab PO BIDMEALS ON LICENSE OF [facility] Last Admin: 03/05/19 11:11 Dose: Not Given Non-Formulary Medication (*Eye Drops Blood Serum) 1 drop TOP QID ON LICENSE OF [facility] Ondansetron HCl (Zofran) 4 mg IV Q4H PRN PRN Reason: Nausea/Vomiting Last Admin: 03/05/19 04:36 Dose: 4 mg Omeprazole 40mg Cap ((Ptom)) 0 each PO ACBREAKFAST ON [facility] Last Admin: 03/05/19 11:15 Dose: 1 each Sotalol 160 Mg ( (Ptom)) 0 each PO BID ON [facility] Last Admin: 03/05/19 11:14 Dose: 1 each Polyethylene Glycol (Miralax) 17 gm PO DAILY PRN PRN Reason: Constipation Prednisone (Prednisone) 2 mg PO DAILY ON [facility] Last Admin: 03/05/19 11:14 Dose: 2 mg Sodium Chloride (Saline Flush) 10 ml FLUSH ASDIRECTED PRN PRN Reason: Keep Vein Open Warfarin Sodium (Coumadin) 5 mg PO DAILY@1300 ON [facility] Discontinued Medications Aspirin (Aspirin) 324 mg PO ONETIME ONE Stop: 03/04/19 17:27 Last Admin: 03/04/19 17:51 Dose: Not Given Levothyroxine Sodium (Synthroid) 50 mcg PO DAILY ON [facility] Patient's Own MedicationSotalol 160 Mg 1 each PO BID ON LICENSE OF [facility] Last Admin: 03/04/19 21:13 Dose: 1 each - Exam Quality Assessment: No: Supplemental Oxygen General: Alert, Oriented, Cooperative, No Acute Distress HEENT: Mucous Membr. Moist/[place], Other (both TM's bulging with clear fluid behind them) Lungs: Clear to Auscultation, Normal Respiratory Effort Cardiovascular: Regular Rate, Regular Rhythm, No Murmurs GI/Abdominal Exam: Soft, No Distention Extremities: No Pedal Edema. No: Increased Warmth Psy/Mental Status: Alert, Normal Affect - Problem List Review Problem List Initiated/Reviewed/Updated: Yes - My Orders Last 24 Hours: My Active Orders 03/05/19 11:15 Fluticasone Propionate [Flonase] 1 gm NASBOTH DAILY 03/05/19 11:26 PT Evaluation and Treatment [CONS] Routine 03/05/19 11:30 guaiFENesin [Mucinex] 1,200 mg PO BID 03/05/19 11:34 Transfer Patient (Change bed) [ADT] Routine 03/05/19 16:00 *Eye Drops Blood Serum 1 drop TOP QID 03/06/19 05:00 BASIC METABOLIC PANEL,BMP [CHEM] Timed INR,PT,PROTHROMBIN TIME [COAG] Timed - Plan Plan:: ASSESSMENT AND PLAN Paroxysmal atrial fibrillation - episode of tachycardia with chest pain noted prior to presentation in one additional episode without chest pain during the hospital stay. I suspect the rapid rhythm led to a mild demand ischemia which led to the very small troponin elevation. Troponin is now normal. Patient was not interested in transfer for aggressive intervention. -Intolerant of aspirin -Continue sotalol and digoxin -Low-dose beta beba -Cardiac monitoring -Continue warfarin HYPERTENSION - blood pressure has improved with the initiation of isosorbide. -Continue usual outpatient medications -Continue isosorbide and metoprolol (new medications) -Hydralazine 5 mg IV for systolic pressure greater than 180 and/or diastolic pressure greater than 106. Sinus congestion - I suspect this is causing her headache and dizziness. Most likely related to allergies. -Continue fluticasone spray -Guaifenesin twice daily PALLIATIVE CARE - she would like medical management only, does not want to consider aggressive interventions or evaluation. MAINTENANCE ISSUES -DVT prophylaxis; current therapy with warfarin should provide adequate DVT prophylaxis -GI prophylaxis; continue outpatient PPI therapy -Joel catheter; not indicated -Nutrition; 2 g sodium diet DISPOSITION - anticipate discharge to home after the hospital stay. Harris الرعاقي M.D.
[2019-03-05] MEDS ORDERED: Metoprolol Tartrate 25 MG Tab PO ONE ×2 (12:41→21:00)
[2019-03-05] MEDS: Fluticasone Propionate Nasal Spray 16 GM Bottle NASBOTH SCH (13:03)
[2019-03-05] MEDS: guaiFENesin 600 MG Tab.ER PO SCH ×2 (13:04→20:37)
[2019-03-05] MEDS: DIGOXIN 125 MCG PO SCH (13:05)
[2019-03-05] MEDS: Warfarin 5 MG Tab (PTOM) PO SCH (13:06)
[2019-03-05] MEDS: [UNRECOGNIZED DRUG - OTHER] EYEBOTH SCH ×3 (13:12→23:00)
[2019-03-05] MEDS ORDERED: LORazepam 2 MG/ML SDV IVPUSH PRN (20:46)
[2019-03-05] MEDS ORDERED: Cetirizine 10 MG Tab PO SCH (21:00)
[2019-03-06] MEDS: [UNRECOGNIZED DRUG - OTHER] EYEBOTH SCH ×2 (05:00→09:07)
[2019-03-06] MEDS: OMEPRAZOLE 40MG CAP (PTOM) PO SCH (08:14)
[2019-03-06] MEDS: LEVOTHYROXINE 50 MCG PO SCH (08:14)
[2019-03-06] MEDS: LACTASE PO SCH (08:14)
[2019-03-06] MEDS ORDERED: Metoprolol Succinate 25 MG Tab.ER PO SCH (09:00)
[2019-03-06] MEDS: SOTALOL PO SCH (09:03)
[2019-03-06] MEDS: PREDNISONE 1 MG PO SCH (09:04)
[2019-03-06] MEDS: Furosemide 20 MG Tab (PTOM) PO SCH (09:04)
[2019-03-06] MEDS: LOSARTAN 50 MG PO SCH (09:04)
[2019-03-06] MEDS: guaiFENesin 600 MG Tab.ER PO SCH (09:05)
[2019-03-06] MEDS: DIVALPROEX SODIUM 250 MG PO SCH (09:06)
[2019-03-06] MEDS: Fluticasone Propionate Nasal Spray 16 GM Bottle NASBOTH SCH (09:07)
[2019-03-06] MEDS: Isosorbide Mononitrate 30 MG Tab.ER PO SCH (09:07)
[2019-03-06 13:36] VITALS: BP 99/63; PULSE 113
[2019-03-06] MEDS: DIGOXIN 125 MCG PO SCH (13:38)
[2019-03-06] MEDS: Warfarin 5 MG Tab (PTOM) PO SCH (13:38)
--- NOTE | 2019-03-06 14:01 | PCM.DCSUM1 ---
Discharge Summary - Hospital Course Brief History: 88-year-old female with a history of paroxysmal atrial fibrillation, generalized anxiety and hypertension who presented with chest pressure and palpitations. Workup in the emergency room suggested atrial fibrillation and a mild elevation of the troponin. She was admitted for observation with further workup and management. Diagnosis: Stroke: No - Discharge Data Discharge Date: 03/06/19 Discharge Disposition: Home, W Home Health Agency 06 Condition: Good - Referral to Home Health Date of Face to Face Encounter: 03/06/19 Reason for Homebound Status: acute weakness following acute medical problems Primary Care Physician: Elton Casillas MD Skilled Need: Nursing, PT and OT - Discharge Diagnosis/Problem(s) (1) Paroxysmal atrial fibrillation with rapid ventricular response SNOMED Code(s): 674472841, [id number] ICD Code: I48.0 - PAROXYSMAL ATRIAL FIBRILLATION Status: Acute (2) Elevated troponin level not due myocardial infarction SNOMED Code(s): 798492139, 408999279, 058175309 ICD Code: R79.89 - OTHER SPECIFIED ABNORMAL FINDINGS OF BLOOD CHEMISTRY Status: Acute (3) Seasonal allergic rhinitis SNOMED Code(s): 803474003 ICD Code: J30.2 - OTHER SEASONAL ALLERGIC RHINITIS Status: Acute Qualifiers: Allergic rhinitis trigger: unspecified Qualified Code(s): J30.2 - Other seasonal allergic rhinitis (4) HTN, Benign hypertension SNOMED Code(s): 88072907 ICD Code: I10 - ESSENTIAL (PRIMARY) HYPERTENSION Status: Chronic Onset Date: 12/19/13 - Patient Summary/Data Consults: Consultations 03/05/19 11:26 PT Evaluation and Treatment [CONS] Routine Please Evaluate and Treat. PT Reason for Consult: Strengthening This query below is only for informational purposes and is not editable. Admission Diagnosis/Problem: Myocardial infarction Hospital Course: Silvana presented to the emergency room after an episode of chest pressure and palpitations. Her daughter who is nurse did check her pulse at the time of the chest pressure and she had a heart rate in the 120s. In the emergency room she was in atrial fibrillation but had a controlled ventricular response. Initial troponin level was unremarkable but repeat troponin level had risen to 0.08. There were discussions in the emergency room about a transfer to a higher level of care for cardiology evaluation. The patient and daughter did not feel that transfer was necessary as they were interested in only medical management and limited interventions given her advanced age and poor functional status to start with. She was admitted to the intensive care unit for serial troponin levels. The plan was for initiation of heparin if she had additional chest pain but it was not initially started because she was pain-free and vital signs were stable. Overnight she did not have any chest pain but she did have a couple of episodes of atrial fibrillation with a rapid ventricular response. She had some difficulty with accelerated hypertension initially but this did improve after the isosorbide was initiated. By the morning after admission her troponin level had normalized. She had not had any recurrence of chest pain and did not feel short of breath. The morning after admission she did complain of a headache as well as sinus pressure and dizziness. Examination was consistent with eustachian tube dysfunction and sinus congestion probably related to seasonal allergies. We have aggressively manage this with resolution of the above symptoms. She has not had a recurrence of her chest pain during the hospital stay. We did initiate low-dose metoprolol because of her episodes of atrial fibrillation which occurred several times during the day after admission. Her heart rate has been better controlled with the addition of this medication. Her blood pressure control has improved with the addition of the beta beba. I did elect to stop the isosorbide that was initially started to help with her blood pressure. Patient has tolerated a regular diet. Her strength is not back to baseline but she is doing well enough to be safe at her assisted-living facility. She was interested in home health care to ease her transition home. The only new medication is long-acting metoprolol which she will be taking once daily in the morning. She will follow-up in the next week or so. - Patient Instructions Diet: Heart Healthy Diet Activity: As Tolerated Showering/Bathing: May Shower Notify Provider of: Fever, Increased Pain, Nausea and/or Vomiting Other/Special Instructions: 1. You were in the hospital for management of paroxysmal atrial fibrillation with a rapid ventricular response. This fast heart rate led to a mild increase in the troponin level but I do not believe that you had a heart attack. Your heart rate has improved after we started metoprolol. You should take this long acting version of metoprolol once daily in the morning. 2. Continue your other home medications as previously prescribed. 3. Follow-up with Dr. Casillas in one to 2 weeks. 4. I have placed a referral to home health care. They will provide nursing and physical therapy services to help ease her transition home. You should have your INR checked in one week. - Discharge Plan *PRESCRIPTION DRUG MONITORING PROGRAM REVIEWED*: Not Applicable *COPY OF PRESCRIPTION DRUG MONITORING REPORT IN PATIENT MEREDITH: Not Applicable Prescriptions/Med Rec: LORazepam 0.5 mg PO Q8H PRN #10 tab PRN Reason: Anxiety/Sleep Metoprolol Succinate [Toprol XL] 25 mg PO DAILY #30 tab.er Home Medications: Home Meds Furosemide [Lasix] 20 mg PO DAILY 12/19/13 [History] Levothyroxine [Synthroid] 50 mcg PO DAILY 12/19/13 [History] Losartan [Cozaar] 50 mg PO DAILY 12/19/13 [History] Sotalol [Betapace] 160 mg PO BID 12/19/13 [History] Gluc HCl/Csa/Claire Hy/Hyalur Ac [Glucosamine Chondroitin] 1 tab PO BID 02/11/15 [ History] Digoxin [Lanoxin] 125 mcg PO DAILY 12/17/16 [History] Prednisone [IJD: Prednisone] 2 mg PO DAILY 12/17/16 [History] Calcium Carbonate 1 tab PO DAILY 01/02/17 [History] Levocetirizine Dihydrochloride [Xyzal] 5 mg PO BEDTIME 01/02/17 [History] Divalproex Sodium [Depakote] 250 mg PO BID #60 tablet. 01/04/17 [Rx] Lactase [Lactaid] 1 tab PO BIDMEALS 05/08/17 [History] Acetaminophen [Tylenol] 650 mg PO Q4H PRN #0 tablet 05/11/17 [Rx] Warfarin [Coumadin] 5 mg PO DAILY #0 05/11/17 [Rx] *Eye Drops Blood Serum 1 drop TOP QID 05/20/18 [History] Omeprazole 40 mg PO ACBREAKFAST 03/05/19 [History] LORazepam 0.5 mg PO Q8H PRN #10 tab 03/06/19 [Rx] Metoprolol Succinate [Toprol XL] 25 mg PO DAILY #30 tab.er 03/06/19 [Rx] Oxygen Therapy Mode: Room Air Patient Handouts: Allergic Rhinitis, Adult Referrals: Elton Casillas MD [Primary Care Provider] - 03/22/19 1:30 pm (1-2 weeks - f/ u hospital stay for afib and mild troponin leak ) - Discharge Summary/Plan Comment DC Time >30 min.: No - Patient Data Vitals - Most Recent: Last Vital Signs Temp 36.4 C 03/06/19 13:00 Pulse 113 H 03/06/19 13:00 Resp 16 03/06/19 13:00 BP 99/63 03/06/19 13:00 Pulse Ox 95 03/06/19 13:00 Weight - Most Recent: 58.9 kg I&O - Last 24 hours: Intake & Output 03/05/19 03/06/19 03/06/19 22:59 06:59 14:59 Intake Total 720 460 Output Total 500 Balance 220 460 Lab Results - Last 24 hrs: Laboratory Results - last 24 hr 03/06/19 03/06/19 Range/Units 05:50 05:50 PT 18.1 H (9.5-12.0) sec INR 1.73 H (0.80-1.20) Sodium 124 L (140-148) mmol/L Potassium 3.6 (3.6-5.2) mmol/L Chloride 88 L (100-108) mmol/L Carbon Dioxide 26 (21-32) mmol/L Anion Gap 13.6 (5.0-14.0) mmol/L BUN 14 (7-18) mg/dL Creatinine 0.9 (0.6-1.0) mg/dL Est Cr Clr Drug Dosing 35.04 mL/min Estimated GFR (MDRD) 59 L (>60) Glucose 122 H (74-106) mg/dL Calcium 8.9 (8.5-10.1) mg/dL Med Orders - Current: Current Medications Acetaminophen (Tylenol) 650 mg PO Q4H PRN PRN Reason: Pain (Mild 1-3)/fever Last Admin: 03/05/19 20:52 Dose: 650 mg Cetirizine HCl (Zyrtec) 10 mg PO BEDTIME [facility] Last Admin: 03/05/19 20:46 Dose: 10 mg Digoxin (Lanoxin) 125 mcg PO DAILY@1300 [facility] Last Admin: 03/06/19 13:38 Dose: Not Given Divalproex Sodium (Depakote Er) 250 mg PO BID [facility] Last Admin: 03/06/19 09:06 Dose: 250 mg Fluticasone Propionate (Flonase) 0 gm NASBOTH DAILY [facility] Last Admin: 03/06/19 09:07 Dose: 1 spray Furosemide (Lasix) 20 mg PO DAILY [facility] Last Admin: 03/06/19 09:04 Dose: 20 mg Guaifenesin (Mucinex) 1,200 mg PO BID [facility] Last Admin: 03/06/19 09:05 Dose: 1,200 mg Hydralazine HCl (Apresoline) 5 mg IVPUSH Q4H PRN PRN Reason: Hypertension Last Admin: 03/05/19 22:46 Dose: 5 mg Levothyroxine Sodium (Synthroid) 50 mcg PO ACBREAKFAST [facility] Last Admin: 03/06/19 08:14 Dose: 50 mcg Lorazepam (Ativan) 0.25 mg IVPUSH Q4H PRN PRN Reason: Nausea/Vomiting Last Admin: 03/05/19 22:55 Dose: 0.25 mg Losartan Potassium (Cozaar) 50 mg PO DAILY [facility] Last Admin: 03/06/19 09:04 Dose: 50 mg Metoprolol Succinate (Toprol Xl) 25 mg PO DAILY [facility] Last Admin: 03/06/19 09:06 Dose: 25 mg Morphine Sulfate (Morphine) 2 mg IVPUSH Q2H PRN PRN Reason: Pain (severe 7-10) Last Admin: 03/05/19 00:03 Dose: 2 mg Lactase [Lactaid] 1 tab PO BIDMEALS [facility] Last Admin: 03/06/19 08:14 Dose: Not Given Non-Formulary Medication (*Eye Drops Blood Serum) 0 drop EYEBOTH QID [facility] Last Admin: 03/06/19 09:07 Dose: 1 drop Ondansetron HCl (Zofran) 4 mg IV Q4H PRN PRN Reason: Nausea/Vomiting Last Admin: 03/05/19 20:52 Dose: 4 mg Omeprazole 40mg Cap ((Ptom)) 0 each PO ACBREAKFAST [facility] Last Admin: 03/06/19 08:14 Dose: 1 each Sotalol 160 Mg ( (Ptom)) 0 each PO BID [facility] Last Admin: 03/06/19 09:03 Dose: 1 each Polyethylene Glycol (Miralax) 17 gm PO DAILY PRN PRN Reason: Constipation Prednisone (Prednisone) 2 mg PO DAILY [facility] Last Admin: 03/06/19 09:04 Dose: 2 mg Sodium Chloride (Saline Flush) 10 ml FLUSH ASDIRECTED PRN PRN Reason: Keep Vein Open Warfarin Sodium (Coumadin) 5 mg PO DAILY@1300 [facility] Last Admin: 03/06/19 13:38 Dose: Not Given Discontinued Medications Aspirin (Aspirin) 324 mg PO ONETIME ONE Stop: 03/04/19 17:27 Last Admin: 03/04/19 17:51 Dose: Not Given Isosorbide Mononitrate (Imdur) 30 mg PO DAILY [facility] Last Admin: 03/06/19 09:07 Dose: 30 mg Levothyroxine Sodium (Synthroid) 50 mcg PO DAILY [facility] Metoprolol Tartrate (Lopressor) 12.5 mg PO ONETIME ONE Stop: 03/05/19 12:42 Last Admin: 03/05/19 12:57 Dose: 12.5 mg Metoprolol Tartrate (Lopressor) 12.5 mg PO ONETIME ONE Stop: 03/05/19 21:01 Last Admin: 03/05/19 20:47 Dose: 12.5 mg Nitroglycerin (Nitrostat) 0.4 mg SL Q5M PRN PRN Reason: Chest Pain Stop: 03/05/19 17:53 Patient's Own MedicationSotalol 160 Mg 1 each PO BID [facility] Last Admin: 03/04/19 21:13 Dose: 1 each - Exam Quality Assessment: Denies: Supplemental Oxygen General: Reports: Alert, Oriented, Cooperative, No Acute Distress Lungs: Reports: Normal Respiratory Effort Cardiovascular: Reports: Regular Rate, Irregular Rhythm GI/Abdominal Exam: Soft, No Distention Extremities: No Pedal Edema Psy/Mental Status: Reports: Alert, Normal Affect *Q Meaningful Use (DIS) - VTE *Q VTE Pharmacological Contraindications *Q: High INR Value
== END 2019-03-06 15:45 | disposition home health service (06) ==
LOC: JP.ED 12:47 → JP.ICU 17:45 → JP.MS 03-05 14:59
PROVIDERS: ADMIT Hospitalist; ATTEND Internal Medicine
DX: I48.0 Paroxysmal atrial fibrillation (principal); I21.4 Non-ST elevation (NSTEMI) myocardial infarction; I10 Essential (primary) hypertension; R79.89 Other specified abnormal findings of blood chemistry; J30.2 Other seasonal allergic rhinitis; K21.9 Gastro-esophageal reflux disease without esophagitis; M19.90 Unspecified osteoarthritis, unspecified site; M81.0 Age-related osteoporosis without current pathological fracture; E78.00 Pure hypercholesterolemia, unspecified; Z88.8 Allergy status to other drugs, medicaments and biological substances; Z88.5 Allergy status to narcotic agent; Z88.6 Allergy status to analgesic agent; Z79.899 Other long term (current) drug therapy
CPT/HCPCS: 36415; 80048; 80053; 80162; 84484; 85027; 85610; 93005; 96374; 96375; 96376; 97162-GP; 97530-GP; 99285; 99285-25; A9270-GY; G0378; J0360; J2060; J2270; J2405